=== PATIENT | female | born 1965 | race Caucasian/White ===

== ENCOUNTER 2021-09-23 06:56 | Inpatient (IN) | payer MEDICARE, MEDICAID, SELFPAY ==
[2021-09-23] VITALS (21 sets, daily range): BP systolic 91–154; BP diastolic 56–97; PULSE 80–132; RESP 16–32; TEMP 36.4–37; O2SAT 90–100; BMI 22.8; BMI 22.9
--- NOTE | 2021-09-23 | IR_ITS ---
APPROVED REPORT Patient Location: Inpatient PROCEDURES Left heart catheterization Left ventriculogram Selective coronary angiogram INDICATION Acute non-ST elevation myocardial infarction, Abnormal echocardiogram ejection fraction 20 to 25% with anterior apical akinesis, Decompensated class IV congestive heart failure, Informed consent was obtained prior to the procedure. COMPLICATIONS None Estimated Blood Loss: Less than 10 mls TECHNIQUE One percent lidocaine used to anesthetize the right anterior aspect of the wrist. The right radial artery was accessed via the Seldinger technique. A 6 Ecuadorean sheath was placed in the right radial artery. 2.5 mg of verapamil, 800 mcg of nitroglycerin, 1mg Lidocaine and 5000 U Heparin were given through the arterial sheath. The papa catheter was also used to perform left heart catheterization, left ventriculogram and selective coronary angiogram. At the end of the procedure the sheath was removed good hemostasis was achieved using Traclet band, patient was transferred to the postop holding area in stable condition. ANGIOGRAPHIC RESULTS The left main artery Normal The left anterior descending artery Has proximal mild 10% luminal irregularities. Distal to a large first diagonal artery and a large septal concrete rubber the mid LAD then tapers to 60 to 70% The circumflex artery Is a vestigial vessel and normal The right coronary artery Is a large dominant vessel and has a proximal concentric 30 to 40% stenosis with a mid vessel concentric long 40% stenosis. A large posterior descending artery and posterior lateral ventricular branch are widely patent The ANGELES ventriculogram reveals Poor opacification of the left ventricle therefore adequate ejection fraction cannot be determined The left ventricular end-diastolic pressure Severely lead to critically elevated at 40 to 45 mmHg IMPRESSION Coronary disease as described above QS pattern on EKG along with echocardiogram which demonstrates akinetic and even dyskinetic septum along with anterior apical hypokinesis and an ejection fraction of 20 to 25% is much more suggestive of an old myocardial infarction. The elevated troponin is most likely a type II NM based on the above findings Severe to critically elevated LVEDP PLAN 1. Patient requires diuresis based on critically elevated LVEDP 2. Start patient on Entresto and allow the tachycardia to resolve on its own as afterload is reduced. Perhaps by the end of this hospital stay we may be able to start low-dose carvedilol 3.125 p.o. twice daily 3. Judicious use of diuretics given patient's family reports what sounds like acute renal failure from historic overdiuresis 4. LDL less than 55 to be achieved with high intensity statin 5. Placement of LifeVest prior to discharge home Electronically signed by : Ramesh Sanchez MD 09/23/2021 11:40:44
--- NOTE | 2021-09-23 07:45 | CA_ITS ---
APPROVED REPORT EXAM: Comprehensive 2D, Doppler, and color-flow Echocardiogram Fructose Loader: Tasha Quiroz CRT Ht: 5 ft 0 in Wt: 117lbs BSA: 1.49 BP: 145/97 mmHg Indications: COPD, Shortness of Breath, Non STEMI, Hyperlipidemia, Hypertension/HDD, prev PR, prev home O2, Pt upright in bed very sob, NRB on, cath later today. increased trop. 2D Dimensions LVOT 1.64 cm (M/F) 1.5-2.5 LA Volume 14.60 mL LA Volume Index 9.80 mL/m2 (M/F) 16-34 M-Mode Dimensions RVDd 1.99 cm (0.9-2.6) LA Diam 1.92 cm (1.9-4.0) LVDd 3.85 cm (3.5-5.7) Ao Diam 2.45 cm (2.0-3.7) LVDs 2.48 cm (3.5-5.7) IVSd 0.85 cm (0.6-1.1) PWd 0.51 cm (0.6-1.1) EF (Teich) 65.70% FS 35.60% EDV (Teich) 63.90 mL TAPSE 2.20 (<1.7) ESV (Teich) 21.90 mL LV Diastology E Decel Time 153.00 (160-240 msec) E/A Ratio 1.31 MED E' 11.30 (< 7 cm/sec) MED A' 14.30 cm/s E'/MED E' Ratio 8.63 (>14) LAT E' 11.60 (<10 cm/sec) LAT A' 8.60 cm/s E/LAT E' Ratio 8.41 (>14) Aortic Valve AO Peak GR. 4.20 mmHg Mitral Valve MV E Max Hossein. 98.00 (40-130 cm/s) MV A Velocity 74.00 (40-130 cm/s) E/A Ratio 1.31 MV Decel. Time 153.00 (160-240 ms) MV PHT 45.00 ms Tricuspid Valve TR P. Velocity 180.00 cm/s RAP Estimate 10.00 mmHg RVSP 22.90 mmHg Left Ventricle Atrium is mildly enlarged, left ventricle is mildly dilated, severe reduced left ventricular systolic function, visually estimated ejection fraction 20 to 25%, there is marked hypokinesis involving mid to distal septum, anterior, anterior apical, apex, anterolateral and inferior apical wall. Doppler evidence of low cardiac output state is also seen. Diastolic parameters are inconclusive. Right Ventricle Right atrium and right ventricle are normal size and contractility. Aortic Valve Aortic valve is minimally thickened and fibrosed, there is no aortic stenosis or aortic insufficiency. Mitral Valve Mitral valve has mild mitral annular calcification, there is no mitral stenosis. There is mild mitral regurgitation. Tricuspid Valve Tricuspid valve grossly normal, there is mild tricuspid regurgitation, tricuspid rotation jet versus inadequate for calculation of the right ventricular systolic pressure. Pulmonic Valve Pulmonic valve is poorly visualized. Great Vessels Aortic root is normal size. Inferior vena cava is mildly dilated without significant inspiratory collapse. Pericardium No significant pericardial effusion noted. Conclusion 1. Mildly enlarged left atrium, mildly dilated left ventricle, severe reduced left ventricular systolic function, visually estimated ejection fraction 2025% with multiple segmental wall motion abnormality described above, diastolic parameters are inconclusive., Doppler evidence of low cardiac output state. 2. Mild mitral and tricuspid regurgitation. 3. No significant pericardial effusion noted. 4. Inferior vena cava is mildly dilated without significant inspiratory collapse. Electronically signed by : Louis Escamilla MD 09/24/2021 14:55:59
--- NOTE | 2021-09-23 07:48 | HMH.CNCARD ---
History of Present Illness Consult date: 09/23/21 Requesting physician: Peter Espana Consult reason: chest pain, shortness of breath Chief complaint: NSTEMI Additional Medical History:: 1. History of hypertension 2. Ongoing tobacco use of at least 1 pack/day for 40 years A. COPD with history of home oxygen use 3. Hyperlipidemia History of present illness: 55-year-old white female recently admitted/discharged at [facility] for shortness of breath felt secondary to upper respiratory infection, presented again to [facility] last evening/early this a.m. with progressive shortness of breath. Work-up in the ER included troponin which was elevated at 7100. EKG was sinus rhythm with no acute ST segment changes but with evidence of prior anterior IL. Patient was started on IV heparin, given oral aspirin and Plavix and after consultation with Dr. Sanchez was transferred here for further evaluation. Patient denies any chest pain at this time but is still short of breath. She is receiving oxygen by nonrebreather. No history of prior coronary artery disease She does continue to smoke No history of diabetes but recently told she had elevated glucose likely related to steroid use. [facility] History Medical History: Reports:: Chronic Obstructive Pulmonary Disease (COPD), Hyperlipidemia, Hypertension, Lung Disease *Have you ever received a pneumonia vaccine?: Yes *Have you received a flu vaccine this season?: Yes - *Social History Smoking Status: Current every day smoker Alcohol Intake: never *Occupational Status:: other *Travel in the last 8 weeks: Inside the [facility] Family Hx:: Coronary Artery Disease Meds Allergies Allergy/AdvReac Type Severity Reaction Status Date / Time No Known Allergies Allergy Verified 09/23/21 07:12 Exam I & O for Last 24 hours: Intake & Output 09/20/21 09/21/21 09/22/21 09/23/21 11:59 11:59 11:59 11:59 Weight 117 lb - Constitutional moderate distress, chronically ill appearing - *Routine Respiratory Exam Present: distant breath sounds, diminished air movement - *Routine Cardiovascular Exam Present: tachycardia - *Routine Extremities Exam Absent: cyanosis, clubbing, edema Comments: Decreased pedal pulses - *Routine Neurological Exam Present: alert, oriented X3 Review of Systems - Review of Systems Review of systems:: pertinent systems reviewed and negative unless documented below - *Cardiovascular Reports shortness of breath, Reports shortness of breath with activity - *Respiratory Reports shortness of breath, Reports shortness of breath with activity Assessment and Plan (1) NSTEMI (non-ST elevated myocardial infarction) Status: Acute Category: Medical Code(s): I21.4 - Non-ST elevation (NSTEMI) myocardial infarction (2) COPD (chronic obstructive pulmonary disease) Status: Acute Category: Medical Code(s): J44.9 - Chronic obstructive pulmonary disease, unspecified (3) History of hypertension Status: Acute Category: Medical Code(s): Z86.79 - Personal history of other diseases of the circulatory system (4) Hyperlipidemia Status: Acute Category: Medical Code(s): E78.5 - Hyperlipidemia, unspecified (5) History of elevated glucose Status: Acute Category: Medical Code(s): Z86.39 - Personal history of other endocrine, nutritional and metabolic disease (6) Abnormal EKG Status: Acute Category: Medical Code(s): R94.31 - Abnormal electrocardiogram [ECG] [EKG] - Assessment and plan all Dx Assessment and Plan for all problems:: 1. Non-ST elevation IL. Plan for left heart catheterization today. Risk, benefits and procedure explained to the patient she agrees to proceed. Continue heparin, Plavix and aspirin at this time. Will obtain echocardiogram to evaluate left ventricular ejection fraction. Further recommendations to follow pending above results. 2. COPD with possible bronchitis/pneumonia, de
[2021-09-23 07:58] LABS: Coronavirus 19, PCR Not Detected (NotDetected); Influenza A, PCR Not Detected (NotDetected); Influenza B, PCR Not Detected (NotDetected)
--- NOTE | 2021-09-23 08:16 | HMH.PHAVTE ---
[facility] Pharmacy VTE Monitoring - Patient Demographics Admission date: 09/23/21 Report Date: 09/23/21 Time: 08:16 Allergies/Adverse Reactions: Patient Allergies No Known Allergies Allergy (Verified 09/23/21 07:12) Height: 1.52 m Weight: 53.07 kg Patient Problems: Current Active Problems NSTEMI (non-ST elevated myocardial infarction) (Acute) COPD (chronic obstructive pulmonary disease) (Acute) History of hypertension (Acute) Hyperlipidemia (Acute) History of elevated glucose (Acute) Abnormal EKG (Acute) - VTE Risk Was VTE Risk Assessment Performed: Yes VTE Score: 4 VTE Risk Level: Low Risk Clinical Trial Participant: No - Prophylaxis VTE Prophylaxis Ordered?: Yes Types of VTE Prophylaxis: TEDS Knee High, Pharmacological Pharmacologic Type: Heparin
--- NOTE | 2021-09-23 08:31 | P.CONPHA_ITS ---
[facility] Pharmacy Heparin Dosing - Demographic Data Admission date:: 09/23/21 Date: 09/23/21 Time: 08:31 Allergies/Adverse Reactions: Allergies Allergy/AdvReac Type Severity Reaction Status Date / Time No Known Allergies Allergy Verified 09/23/21 07:12 Height: 1.52 m Weight: 53.07 kg - Indication Medication therapy:: Heparin Patient Problems: Current Active Problems NSTEMI (non-ST elevated myocardial infarction) (Acute) COPD (chronic obstructive pulmonary disease) (Acute) History of hypertension (Acute) Hyperlipidemia (Acute) History of elevated glucose (Acute) Abnormal EKG (Acute) CVA?: No Bleeding problem?: No Kidney disease?: No MN?: Yes Desired PTT range:: Other (50-75 SECONDS) - Monitoring Dose Monitor 1 Date: 09/23/21 Time: 07:22 PTT Result:: NEW START Infusion Rate:: PATIENT WAS TRANSFERRED FROM [facility] AND THE HEPARIN DRIP WAS STARTED AT 1600 UNITS/HOUR Dose Monitor 2 Date: 09/23/21 Time: 08:33 PTT Result:: 100 Infusion Rate:: DECREASE HEPARIN RATE BY 3 UNITS/KG/HOUR TO 1450 UNITS/HOUR Dose Monitor 3 Date: 09/23/21 Time: 10:00 PTT Result:: 176.5 Infusion Rate:: DRIP CONTINUED AT CURRENT RATE, PATIENT WAS SENT TO RADIOLOGY NURSE AND GIVEN HEPARIN THERE FOR PROCEDURE. Comment:: HEPARIN DRIP STOPPED AFTER RADIOLOGY NURSE INTERVENTION AT 13:10 - Core Measures Is INR > or = 2 at discharge?: No Most Recent Labs:: Laboratory Results - last 24 hr 09/23/21 07:22: APTT 100.0 H* Were Heparin and Warfarin started on the same day?: No If not, why?: PATIENT WENT TO RADIOLOGY NURSE, POST RADIOLOGY NURSE ORDERS PENDING
--- NOTE | 2021-09-23 09:03 | HMH.HP ---
*Admission Date: 09/23/21 *Chief complaint: SOA *History of present illness: 55-year-old female patient presented to the emergency department at [facility] for increasing shortness of breath and cough. son reports she was inpatient at [facility] for bronchitis over the weekend and received antibiotics he is unsure what medication she received. Son also reports that she is a longtime tobacco smoker and carries a diagnosis of COPD. While in the emergency department it was discovered she had elevated troponin levels 7100, cardiology was consulted and she was transferred to [facility]. Son also reports his grandmother, patient's mother is at home with hospice care and is actively dying. He reports he knows his mother has been sick for a while but she will not report any complaints due to caring for her mother. Son also reports she has had difficulty swallowing pills for a while and has been coughing after eating. He reports his mother will not discuss her shortness of breath, swallowing difficulties, chest pain, or other visible distress with family. 09/23/21 CXR: FINDINGS: The heart is normal size. The mediastinum is normal. There are coarse interstitial opacities in the lungs favoring chronic fibrosis. There are no pleural effusions. There is no pneumothorax. There is no osseous abnormality. IMPRESSION: No acute cardiopulmonary process Reviewed, Interpreted and Dictated by Amilcar Barbosa MD 55-year-old female patient sitting up to bed is in respiratory distress, current saturations 90% on room nonrebreather. Patient assisted to sitting up at bedside she is able to breathe a little better here and is reminded to not speak. She denies any chest pain, son is in room, cardiology has scheduled her for catheterization this morning [facility] History I have reviewed the patient's past medical history: Yes Medical History: Reports:: Hyperlipidemia, Hypertension Denies:: Cancer, Diabetes Mellitus Type 1, Diabetes Mellitus Type 2, MRSA *Have you ever received a pneumonia vaccine?: Yes *Have you received a flu vaccine this season?: Yes Amputation: No Fractures: No - *Social History Last grade of school completed: 11th or 12th Smoking Status: Current every day smoker Tobacco Type: cigarettes # Packs/Day (cigarettes): 1 Alcohol Intake: never Alcohol Intake Frequency:: 0-2 drinks per day Substance Use Type: denies use Last Used Substance: unknown *Occupational Status:: disabled Housing: apartment Household Members: family *Travel in the last 8 weeks: None Family Hx:: Unable to obtain Review of Systems - Review of Systems Review of systems:: pertinent systems reviewed and negative unless documented below - Constitutional Reports fatigue, Reports weakness - Eyes Denies blurry vision, Denies change in vision - ENT Denies abnormal hearing, Denies hearing loss - *Cardiovascular Reports shortness of breath, Reports shortness of breath with activity, Reports leg swelling - *Respiratory Reports chest congestion, Reports cough, Reports shortness of breath, Reports shortness of breath with activity - *Gastrointestinal Denies abdominal pain, Denies change in bowel habits - *Musculoskeletal Denies joint pain, Denies body aches - Integumentary/Breasts Denies hair loss, Denies change in skin color - *Neurologic Denies abnormal hearing, Denies seizure-like activity - Psychiatric Denies lack of enjoyment, Denies anxiety - Endocrine Denies cold intolerance, Denies increased thirst - Hematologic/Lymphatic Denies easy bleeding, Denies easy bruising - Allergic/Immunologic Denies lip swelling, Denies tongue swelling Meds Home Medications Medication Instructions Recorded Confirmed Type Albuterol Sulfate [Albuterol 2 puffs IH Q4HP PRN 09/23/21 09/23/21 History Sulfate Hfa] Buprenorphine HCl/Naloxone HCl 2 each SL DAILY 09/23/21 09/23/21 History [Buprenorphin-Nalox
--- NOTE | 2021-09-23 09:18 | HMH.PULMCON ---
*Admission Date: 09/23/21 *Reason for consult:: Acute Hypoxic respiratory failure *History of present illness: Ms. Farley Is a 55-year-old female presented to the hospital from [facility] where she was admitted for worsening respiratory symptoms significantly elevated troponins status post cardiac catheterization and pulmonary was called for further management. As per the patient was also recently admitted there for upper respiratory infection. [facility] History Medical History: Reports:: Hyperlipidemia, Hypertension Denies:: Cancer, Diabetes Mellitus Type 1, Diabetes Mellitus Type 2, MRSA *Have you ever received a pneumonia vaccine?: Yes *Have you received a flu vaccine this season?: Yes Amputation: No Fractures: No - *Social History Last grade of school completed: 11th or 12th Smoking Status: Current every day smoker Tobacco Type: cigarettes # Packs/Day (cigarettes): 1 Alcohol Intake: never Alcohol Intake Frequency:: other Substance Use Type: other Last Used Substance: unknown *Occupational Status:: disabled Housing: apartment Household Members: family *Travel in the last 8 weeks: None Family Hx:: Other ROS - Cons Reports fatigue - Eyes Denies change in vision - ENT Denies nasal discharge, Denies nasal obstruction - Card Reports chest pain, Reports shortness of breath, Reports shortness of breath with activity - Resp Respiratory: Reports shortness of breath, Reports chest congestion, Reports cough, Reports dyspnea, Reports dyspnea on exertion, Denies excessive phlegm production, Reports wheezing - GI Gastrointestingal: Denies: abdominal pain - Psych Denies thoughts of hurting/killing others, Denies thoughts of hurting/killing yourself Meds Allergies Allergy/AdvReac Type Severity Reaction Status Date / Time No Known Allergies Allergy Verified 09/23/21 07:12 Exam - Constitutional Constitutional:: Present: no acute distress. Absent: comfortable - HENMT Exam HENMT: Present: normocephalic, atraumatic - Eye Exam Eyes:: Present: normal appearance both eyes and related structures - Neck Exam Neck:: Present: normal visual inspection - Respiratory Exam Respiratory:: Present: able to speak in complete sentences, respiratory distress, wheezing - Cardiovascular Exam Cardiac:: Present: S1, S2 - GI Exam GI:: Present: soft - Skin Exam Skin: Present: warm, no rash - Neurological Exam Neurological: Present: alert, awake - Extremities Exam Extremities: Present: no cyanosis, no clubbing, no edema Assessment and Plan (1) NSTEMI (non-ST elevated myocardial infarction) Status: Acute Category: Medical Code(s): I21.4 - Non-ST elevation (NSTEMI) myocardial infarction (2) COPD (chronic obstructive pulmonary disease) Status: Acute Category: Medical Code(s): J44.9 - Chronic obstructive pulmonary disease, unspecified (3) History of hypertension Status: Acute Category: Medical Code(s): Z86.79 - Personal history of other diseases of the circulatory system (4) Hyperlipidemia Status: Acute Category: Medical Code(s): E78.5 - Hyperlipidemia, unspecified (5) History of elevated glucose Status: Acute Category: Medical Code(s): Z86.39 - Personal history of other endocrine, nutritional and metabolic disease (6) Abnormal EKG Status: Acute Category: Medical Code(s): R94.31 - Abnormal electrocardiogram [ECG] [EKG] - Assessment and plan all Dx Assessment and Plan for all problems:: #Acute hypoxic respiratory failure: #COPD exacerbation: 55-year-old female current smoker greater than [id number] smoking history. Carries a diagnosis COPD. Not using any oxygen at baseline. Recently admit to the hospital at [facility], treated with antibiotics and diuretics for exertional dyspnea and was discharged home and patient presented hospital again with similar complaints are noted to have elevated troponin and transferred here for further evaluation
--- NOTE | 2021-09-23 09:22 | XR_ITS ---
FINAL REPORT CLINICAL HISTORY: Hypoxia, smoker FINDINGS: The heart is normal size. The mediastinum is normal. There are coarse interstitial opacities in the lungs favoring chronic fibrosis. There are no pleural effusions. There is no pneumothorax. There is no osseous abnormality. IMPRESSION: No acute cardiopulmonary process Reviewed, Interpreted and Dictated by Amilcar Barbosa MD Transcribed by Juan Luis Herring Authenticated by Amilcar Barbosa MD on 09/23/2021 10:59:45 AM [facility]
[2021-09-23 09:26] LABS: Adenovirus,PCR Not Detected (NotDetected); Bordetella Pertussis Not Detected (NotDetected); Chlamydophila Pneumoniae, PCR Not Detected (NotDetected); Coronavirus 229E Not Detected (NotDetected); Coronavirus NL63 Not Detected (NotDetected); Coronavirus OC43 Not Detected (NotDetected); Coronovirus HKU1,PCR Not Detected (NotDetected); Human Metapneumovirus Not Detected (NotDetected); Influenza A, PCR Not Detected (NotDetected); Influenza AH1, 2009 Not Detected (NotDetected); Influenza AH1, PCR Not Detected (NotDetected); Influenza AH3,PCR Not Detected (NotDetected); Influenza B, PCR Not Detected (NotDetected); Mycoplasma Pneumoniae, PCR Not Detected (NotDetected); Parainfluenza 1, PCR Not Detected (NotDetected); Parainfluenza 2, PCR Not Detected (NotDetected); Parainfluenza 3, PCR Not Detected (NotDetected); Parainfluenza 4, PCR Not Detected (NotDetected); Respiratory Syncytial Virus Not Detected (NotDetected); Rhinovirus/Enterovirus Not Detected (NotDetected)
--- NOTE | 2021-09-23 10:06 | DIET.NUTRFU ---
RD rounded with provider today, during rounds son indicated his mom has been having trouble swallowing some of her pills. VEHICLE [employer] CONVERTER to eval to determine safe oral diet, will followup
[2021-09-23 10:35] LABS: PTT Heparin (inpatient only) 176.5 Seconds (23.6-34.0)
[2021-09-23 10:46] LABS: ABG Base Excess 0.3 mmol/L (-2.4-2.3); ABG Oxygen Saturation 99 % (90-100); ABG PCO2 48.9 mmhg (35.0-45.0); ABG PH 7.34 mmol/L (7.35-7.45); ABG PO2 148.3 mmhg (80-100); ABG TCO2 27.5 mmhg (23-27); Oxygen SIMPLE MASK %; Source ALINE
[2021-09-23 13:50] LABS: Basophils % 0.2 % (0.1-2.0); Eosinophils % 0.2 % (0.1-12.0); Hematocrit 40.6 % (37.0-47.0); Hemoglobin 12.9 g/dL (12.2-16.2); Lymphocytes # 1.2 K/mm3 (0.7-4.5); Lymphocytes % 5.5 % (10-50); Mean Corpuscular HGB Conc 31.8 g/dL (31.8-35.4); Mean Corpuscular Hemoglobin 30.8 pg (27.0-31.2); Mean Corpuscular Volume 96.8 fl (81-99); Mean Platelet Volume 8.8 fl (7.4-10.4); Monocytes # 0.6 K/mm3 (0.1-1.0); Monocytes % 2.7 % (1.7-9.3); Neutrophils # 19.4 K/mm3 (1.8-7.8); Neutrophils % 91.3 % (37.0-80.0); Platelet Count 510 K/mm3 (142-424); Red Blood Count 4.19 M/mm3 (4.20-5.40); Red Cell Distribution Width 13.6 % (11.5-17.5); White Blood Count 21.3 K/mm3 (4.8-10.8)
[2021-09-23 13:54] LABS: MANUAL DIFFERENTIAL MANUAL DIFFERENTIAL (MANUAL DIFF)
[2021-09-23 14:04] LABS: Chloride 91 mmol/L (98-107); Sodium 126 mmol/L (136-145)
[2021-09-23 14:05] LABS: Potassium 4.1 mmoL/L (3.5-5.1)
[2021-09-23 14:07] LABS: Blood Urea Nitrogen 10 mg/dl (7-17); Creatinine Clearance Estimated 104 mL/min (50-200); Estimated Glomerular Filt Rate 127 ml/min (>60); GFR (African American) 154 ML/MIN (>60)
[2021-09-23 14:08] LABS: Anion Gap 7.1 mEq/L (5-15); Calcium 7.5 mg/dl (8.4-10.2); Carbon Dioxide 32 mmol/L (22.0-30.0); Glucose 147 mg/dl (74-100); Magnesium 1.7 mg/dl (1.6-2.3)
[2021-09-23 14:36] LABS: Lymphocytes % 11 % (10-50); Monocytes % 2 % (2-9); Neutrophils % 87 % (42-76); Platelet Estimate Normal; RBC Morphology Normal; Total Cells Counted 100
--- NOTE | 2021-09-23 15:25 | HMH.PHAINT ---
MEDICATION RECONCILIATION COMPLETED ON PATIENT USING EXTERNAL FILL HISTORY FROM PHARMACY AND BALJINDER REPORT. -BONNIE JACOBSEND
--- NOTE | 2021-09-23 15:58 | PC.NURSE ---
PT IS RESTING IN BED. PT HAS BEEN VERY DROWSY SINCE ARRIVING BACK TO THE FLOOR FROM THE LOAN ANALYST. AT 1400 PT HAD TO GET UP VERY QUICKLY TO THE BSC AND BECAME VERY ANXIOUS. BP 154/90. HR 123 R 32. O2 SATURATION 89-93%. PT ALSO HAD AUDIBLE WHEEZING. RT NOTIFIED FOR SCHEDULED BREATHING TREATMENT. KALI KAUR NOTIFIED AND WAS AT BEDSIDE WHEN PT WAS RECEIVING BREATHING TREATMENT. AFTER TREATMENT PT STARTED TO CALM DOWN. AT 1430 BP 113/63. HR 104. R 24. O2 SATURATION 97% ON 2 L NC. WILL CONTINUE TO MONITOR.
[2021-09-24] VITALS (11 sets, daily range): BP systolic 113–144; BP diastolic 66–78; PULSE 89–130; RESP 16–24; TEMP 35.9–37.4; O2SAT 94–99; BMI 22.1
[2021-09-24 06:48] LABS: MANUAL DIFFERENTIAL MANUAL DIFFERENTIAL (MANUAL DIFF)
[2021-09-24 06:56] LABS: Basophils % 0.1 % (0.1-2.0); Hemoglobin 14.1 g/dL (12.2-16.2); Lymphocytes # 1.1 K/mm3 (0.7-4.5); Lymphocytes % 10.4 % (10-50); Mean Corpuscular HGB Conc 32.7 g/dL (31.8-35.4); Mean Corpuscular Hemoglobin 30.3 pg (27.0-31.2); Mean Corpuscular Volume 92.4 fl (81-99); Mean Platelet Volume 7.3 fl (7.4-10.4); Monocytes # 0.6 K/mm3 (0.1-1.0); Monocytes % 5.2 % (1.7-9.3); Neutrophils % 84.2 % (37.0-80.0); Platelet Count 484 K/mm3 (142-424); Red Blood Count 4.65 M/mm3 (4.20-5.40); Red Cell Distribution Width 13.7 % (11.5-17.5); White Blood Count 10.7 K/mm3 (4.8-10.8)
[2021-09-24 07:04] LABS: Chloride 88 mmol/L (98-107); Potassium 4.1 mmoL/L (3.5-5.1); Sodium 128 mmol/L (136-145)
[2021-09-24 07:07] LABS: Anion Gap 9.1 mEq/L (5-15); Blood Urea Nitrogen 13 mg/dl (7-17); Carbon Dioxide 35 mmol/L (22.0-30.0); Creatinine Clearance Estimated 100 mL/min (50-200); Estimated Glomerular Filt Rate 127 ml/min (>60); GFR (African American) 154 ML/MIN (>60)
[2021-09-24 07:08] LABS: Calcium 7.9 mg/dl (8.4-10.2); Glucose 135 mg/dl (74-100)
[2021-09-24 08:30] LABS: Lymphocytes % 6 % (10-50); Monocytes % 2 % (2-9); Neutrophils % 92 % (42-76); Total Cells Counted 100
[2021-09-24 08:31] LABS: Platelet Estimate Normal
--- NOTE | 2021-09-24 08:43 | HMH.PULMPN ---
Internal Medicine - PN: Subj *Date: 09/24/21 *Time: 09:39 Interval history: No acute respiratory events overnight. Patient admits continued improvement in her symptoms. Exam - Constitutional Constitutional:: Present: no acute distress, comfortable - HENMT Exam HENMT: Present: normocephalic, atraumatic - Eye Exam Eyes:: Present: normal appearance both eyes and related structures - Neck Exam Neck:: Present: normal visual inspection - Respiratory Exam Respiratory:: Present: able to speak in complete sentences, no respiratory distress, crackles. Absent: wheezing - Cardiovascular Exam Cardiac:: Present: S1, S2 - GI Exam GI:: Present: soft - Skin Exam Skin: Present: warm - Neurological Exam Neurological: Present: alert, awake - Extremities Exam Extremities: Present: no cyanosis, no clubbing, edema Assessment and Plan (1) NSTEMI (non-ST elevated myocardial infarction) Status: Acute Category: Medical Code(s): I21.4 - Non-ST elevation (NSTEMI) myocardial infarction (2) COPD (chronic obstructive pulmonary disease) Status: Acute Category: Medical Code(s): J44.9 - Chronic obstructive pulmonary disease, unspecified (3) History of hypertension Status: Acute Category: Medical Code(s): Z86.79 - Personal history of other diseases of the circulatory system (4) Hyperlipidemia Status: Acute Category: Medical Code(s): E78.5 - Hyperlipidemia, unspecified (5) History of elevated glucose Status: Acute Category: Medical Code(s): Z86.39 - Personal history of other endocrine, nutritional and metabolic disease (6) Abnormal EKG Status: Acute Category: Medical Code(s): R94.31 - Abnormal electrocardiogram [ECG] [EKG] - Assessment and plan all Dx Assessment and Plan for all problems:: #Acute hypoxic respiratory failure: #COPD exacerbation: 55-year-old female current smoker greater than [id number] smoking history. Carries a diagnosis COPD. Not using any oxygen at baseline. Recently admit to the hospital at [facility], treated with antibiotics and diuretics for exertional dyspnea and was discharged home and patient presented hospital again with similar complaints are noted to have elevated troponin and transferred here for further evaluation COVID-19 and flu PCR negative. Afebrile on presentation. Chest x-ray did not show any acute pulmonary infiltrates, hyperinflated lungs. Examination revealed mild respiratory distress with diffuse wheezing. Bilateral 2+ lower extremity edema noted. Saturating 99% nonrebreather, weaned to 2 L nasal cannula saturations maintained at 94% and above. ABG performed on 2 L nasal cannula showed PO2 148, PCO2 48 and pH of 7.34. Interval Update: Leucocytosis improving. Continued to have hyponatremia. Comprehensive respiratory viral PCR negative. O2 requirements continued to improve, saturating 97% on 2 L, weaned to room air with saturations maintained at 93% and above. Plan: -Patient weaned to room air this morning, oxygen as needed to maintain O2 saturation goal of 90% and above. -Continue ceftriaxone & azithromycin for community-acquired pneumonia, can be weaned to levofloxacin to complete a total of 5-day course upon discharge -DuoNebs every 6 hours along with budesonide every 12 schedule, patient can be discharged on home inhaler therapy which include Anoro and Asmanex along with DuoNebs every 6 hours on as-needed basis. -Wean methylprednisolone to prednisone 40 mg daily to complete a total of 5-day course. -Volume optimization as per primary team and cardiology. #Thank you for involving pulmonary in this patient care. We will follow the patient in pulmonary clinic in -6 with a full PFT and 6-minute walk testing.
--- NOTE | 2021-09-24 08:49 | HMH.SLDYSPHA ---
Speech & Language Evaluation Speech/Language Dysphagia Evaluation Start: 09/24/21 08:39 Freq: ONCE Status: Active Protocol: Document 09/24/21 08:40 DALLIN (Rec: 09/24/21 08:49 DALLIN [id number]) Dysphagia Assess/Goals/Plan Assessment Date of Evaluation: 09/24/21 Evaluation Type Initial Certification Assessment/Problems Dysphagia eval Does Patient Qualify for Service No Qualify/Failure Comment No overt signs or symptoms of dysphagia at this time. Plan Pt/Guardian verbally ack understanding Yes of dx/prognosis/goals G -code Required No General Information General Current Food Consistancy Regular,Thin Liquids Dentition Poor Dentition Oxygen Status Nasal Cannula Facial Symmetry Symmetrical Patient Orientation Person,Place,Time,Situation Ability to Follow Directions Excellent Communication Ability No Impairment Dysphagia:Food Presentation Evaluation Food Type Regular,Liquid,Pudding Dysphagia Evaluation Summary Ms. Fisher was given the following consistencies; thins via open cup and straw, pudding, regular and pills. She is not displaying any signs of dysphagia at this time. Modified diet of [facility] soft is recommended due to poor dentition and difficulty breathing while eating. Stroke Dysphagia Assessment PHYSICIAN CERTIFICATION: I certify the specified therapy services for Natalia Farley are required, authorized, and reviewed every 30 days.
--- NOTE | 2021-09-24 09:05 | HMH.ACPN2 ---
Internal Medicine - PN: Subj *Date: 09/24/21 *Time: 12:20 Interval history: 55-year-old female patient sitting up in bed resting quietly she denies any chest pain, shortness of breath, or anxiety during the night. Current oxygenation 96% on 2 L per nasal cannula. She denies being on any oxygen at home, she reports she was on home O2 at one point and did not requalify and oxygen was removed from house. She is complaining of increased anxiety lately and we will start a trial of BuSpar Exam Vital signs and Labs for Last 24 Hours: Temp Pulse Resp BP Pulse Ox 98.3 F 91 H 16 119/72 97 09/24/21 04:00 09/24/21 05:52 09/24/21 04:00 09/24/21 04:00 09/24/21 05:52 Laboratory Results - last 24 hr 09/22/21 07:32: WBC 21.3 H*, RBC 4.19 L, Hgb 12.9, Hct 40.6, MCV 96.8, MCH 30.8, MCHC 31.8, RDW 13.6, Plt Count 510 H, MPV 8.8, Neut % (Auto) 91.3 H, Lymph % (Auto) 5.5 L, [place] % (Auto) 2.7, Eos % (Auto) 0.2, Baso % (Auto) 0.2, Neut # (Auto) 19.4 H, Lymph # (Auto) 1.2, [place] # (Auto) 0.6, Eos # (Auto) 0.0, Baso # (Auto) 0.0, Total Counted 100, Neutrophils % (Manual) 87 H, Lymphocytes % (Manual) 11, Monocytes % (Manual) 2, Platelet Estimate Normal, RBC Morphology Normal 09/22/21 07:32: Sodium 126 L, Potassium 4.1, Chloride 91 L, Carbon Dioxide 32 H, Anion Gap 7.1, BUN 10, Creatinine 0.50 L, Estimated Creat Clear 104, Estimated GFR 127, Est GFR ( Amer) 154, Glucose 147 H, Calcium 7.5 L, Magnesium 1.7 09/23/21 07:30: SARS-CoV-2 (PCR) Not detected, Influenza A Untype (PCR) Not detected, Influenza Type B (PCR) Not detected 09/23/21 07:30: Chlamy pneumoniae PCR Not detected, Adenovirus (PCR) Not detected, B. pertussis DNA (PCR) Not detected, Coronavirus OC43 (PCR) Not detected, Coronavirus HKU1 (PCR) Not detected, Coronavirus 229E (PCR) Not detected, Coronavirus NL63 (PCR) Not detected, Human Metapneumovir PCR Not detected, Influenza A (H1) PCR Not detected, Influ A (H1N1/09) PCR Not detected, Influenza A (H3) PCR Not detected, Influenza Type A (PCR) Not detected, Influenza Type B (PCR) Not detected, M. pneumoniae (PCR) Not detected, Parainfluenza 1 (PCR) Not detected, Parainfluenza 2 (PCR) Not detected, Parainfluenza 3 (PCR) Not detected, Parainfluenza 4 (PCR) Not detected, RSV (PCR) Not detected, Entero/Rhino (PCR) Not detected 09/23/21 09:54: APTT 176.5 H* 09/23/21 10:02: Specimen Source [place], O2 % Simple mask, ABG pH 7.34 L, ABG pCO2 48.9 H, ABG pO2 148.3 H, ABG HCO3 26.0, ABG Total CO2 27.5 H, ABG O2 Saturation 99, ABG Base Excess 0.3 09/24/21 05:50: WBC 10.7 D, RBC 4.65, Hgb 14.1, Hct 43.0, MCV 92.4, MCH 30.3, MCHC 32.7, RDW 13.7, Plt Count 484 H, MPV 7.3 L, Neut % (Auto) 84.2 H, Lymph % (Auto) 10.4, [place] % (Auto) 5.2, Eos % (Auto) 0.0 L, Baso % (Auto) 0.1, Neut # (Auto) 9.0 H, Lymph # (Auto) 1.1, [place] # (Auto) 0.6, Eos # (Auto) 0.0, Baso # (Auto) 0.0, Total Counted 100, Neutrophils % (Manual) 92 H, Lymphocytes % (Manual) 6 L, Monocytes % (Manual) 2, Platelet Estimate Normal 09/24/21 05:50: Sodium 128 L, Potassium 4.1, Chloride 88 L, Carbon Dioxide 35 H, Anion Gap 9.1, BUN 13 D, Creatinine 0.50 L, Estimated Creat Clear 100, Estimated GFR 127, Est GFR ( Amer) 154, Glucose 135 H, Calcium 7.9 L I & O for Last 24 hours: Intake & Output 09/21/21 09/22/21 09/23/21 09/24/21 23:59 23:59 23:59 23:59 Intake Total 480 / 480 Output Total 0 / 0 900 / 900 Balance 480 / 480 -900 / -900 Weight 116 lb 13.52 oz 113 lb - Constitutional no acute distress, thin, chronically ill appearing - *Routine HEENT Exam Head: Present: normocephalic Eye: Present: EOMI ENT: Present: mucous membranes moist - *Routine Neck Exam Present: trachea midline. Absent: tracheal deviation - *Routine Respiratory Exam Present: decreased breath sounds. Absent: accessory muscle use - *Routine Cardiovascular Exam Present: RRR - *Routine Abdominal Exam Present: soft, normoactive bowel sounds. Absent: tenderness, firm - *Routine Extremities Exam Present:
--- NOTE | 2021-09-24 09:30 | HMH.PNCARD ---
Subjective Date: 09/24/21 Time: 09:30 Principal diagnosis: CHF, Cardiomyopathy Interval history: 55-year-old white female in bed in no acute distress. Is significantly less anxious and short of breath today compared to yesterday. Reviewed the results of her cardiac catheterization and her current cardiac status with recommendation for treatment and consideration of LifeVest. Exam Vital signs and Labs for Last 24 Hours: Temp Pulse Resp BP Pulse Ox 96.6 F L 96 H 22 144/78 H 94 L 09/24/21 08:00 09/24/21 08:00 09/24/21 08:00 09/24/21 08:00 09/24/21 08:00 Laboratory Results - last 24 hr 09/22/21 07:32: WBC 21.3 H*, RBC 4.19 L, Hgb 12.9, Hct 40.6, MCV 96.8, MCH 30.8, MCHC 31.8, RDW 13.6, Plt Count 510 H, MPV 8.8, Neut % (Auto) 91.3 H, Lymph % (Auto) 5.5 L, [place] % (Auto) 2.7, Eos % (Auto) 0.2, Baso % (Auto) 0.2, Neut # (Auto) 19.4 H, Lymph # (Auto) 1.2, [place] # (Auto) 0.6, Eos # (Auto) 0.0, Baso # (Auto) 0.0, Total Counted 100, Neutrophils % (Manual) 87 H, Lymphocytes % (Manual) 11, Monocytes % (Manual) 2, Platelet Estimate Normal, RBC Morphology Normal 09/22/21 07:32: Sodium 126 L, Potassium 4.1, Chloride 91 L, Carbon Dioxide 32 H, Anion Gap 7.1, BUN 10, Creatinine 0.50 L, Estimated Creat Clear 104, Estimated GFR 127, Est GFR ( Amer) 154, Glucose 147 H, Calcium 7.5 L, Magnesium 1.7 09/23/21 07:30: Chlamy pneumoniae PCR Not detected, Adenovirus (PCR) Not detected, B. pertussis DNA (PCR) Not detected, Coronavirus OC43 (PCR) Not detected, Coronavirus HKU1 (PCR) Not detected, Coronavirus 229E (PCR) Not detected, Coronavirus NL63 (PCR) Not detected, Human Metapneumovir PCR Not detected, Influenza A (H1) PCR Not detected, Influ A (H1N1/09) PCR Not detected, Influenza A (H3) PCR Not detected, Influenza Type A (PCR) Not detected, Influenza Type B (PCR) Not detected, M. pneumoniae (PCR) Not detected, Parainfluenza 1 (PCR) Not detected, Parainfluenza 2 (PCR) Not detected, Parainfluenza 3 (PCR) Not detected, Parainfluenza 4 (PCR) Not detected, RSV (PCR) Not detected, Entero/Rhino (PCR) Not detected 09/23/21 09:54: APTT 176.5 H* 09/23/21 10:02: Specimen Source [place], O2 % Simple mask, ABG pH 7.34 L, ABG pCO2 48.9 H, ABG pO2 148.3 H, ABG HCO3 26.0, ABG Total CO2 27.5 H, ABG O2 Saturation 99, ABG Base Excess 0.3 09/24/21 05:50: WBC 10.7 D, RBC 4.65, Hgb 14.1, Hct 43.0, MCV 92.4, MCH 30.3, MCHC 32.7, RDW 13.7, Plt Count 484 H, MPV 7.3 L, Neut % (Auto) 84.2 H, Lymph % (Auto) 10.4, [place] % (Auto) 5.2, Eos % (Auto) 0.0 L, Baso % (Auto) 0.1, Neut # (Auto) 9.0 H, Lymph # (Auto) 1.1, [place] # (Auto) 0.6, Eos # (Auto) 0.0, Baso # (Auto) 0.0, Total Counted 100, Neutrophils % (Manual) 92 H, Lymphocytes % (Manual) 6 L, Monocytes % (Manual) 2, Platelet Estimate Normal 09/24/21 05:50: Sodium 128 L, Potassium 4.1, Chloride 88 L, Carbon Dioxide 35 H, Anion Gap 9.1, BUN 13 D, Creatinine 0.50 L, Estimated Creat Clear 100, Estimated GFR 127, Est GFR ( Amer) 154, Glucose 135 H, Calcium 7.9 L I & O for Last 24 hours: Intake & Output 09/21/21 09/22/21 09/23/21 09/24/21 11:59 11:59 11:59 11:59 Intake Total 0 / 0 480 / 480 Output Total 0 / 0 900 / 900 Balance 0 / 0 -420 / -420 Weight 116 lb 15.989 oz 113 lb - *Routine Respiratory Exam Present: decreased breath sounds - *Routine Cardiovascular Exam Present: RRR - *Routine Extremities Exam Absent: cyanosis, clubbing, edema - *Routine Neurological Exam Present: alert, oriented X3 Progress Note: A&P (1) NSTEMI (non-ST elevated myocardial infarction) Status: Acute Assessment and plan: Type II non-ST elevation [place] secondary to acute on chronic systolic heart failure. Continue aspirin and Plavix. She did not have any stenting at this time. Moderate coronary artery disease to be treated medically. (2) COPD (chronic obstructive pulmonary disease) Status: Acute (3) History of hypertension Status: Acute (4) Hyperlipidemia Status: Acute (5) History of elevated glucose Status:
[2021-09-25] VITALS (12 sets, daily range): BP systolic 96–123; BP diastolic 47–68; PULSE 70–115; RESP 16–18; TEMP 36.5–36.9; O2SAT 90–94; BMI 20.2
[2021-09-25 07:01] LABS: MANUAL DIFFERENTIAL MANUAL DIFFERENTIAL (MANUAL DIFF)
[2021-09-25 07:05] LABS: Chloride 86 mmol/L (98-107); Potassium 4.1 mmoL/L (3.5-5.1); Sodium 129 mmol/L (136-145)
[2021-09-25 07:08] LABS: Anion Gap 9.1 mEq/L (5-15); Blood Urea Nitrogen 21 mg/dl (7-17); Calcium 8.3 mg/dl (8.4-10.2); Carbon Dioxide 38 mmol/L (22.0-30.0); Creatinine Clearance Estimated 57 mL/min (50-200); Estimated Glomerular Filt Rate 74 ml/min (>60); GFR (African American) 89 ML/MIN (>60); Glucose 96 mg/dl (74-100)
[2021-09-25 07:23] LABS: Basophils % 0.1 % (0.1-2.0); Hematocrit 47.8 % (37.0-47.0); Hemoglobin 15.4 g/dL (12.2-16.2); Lymphocytes # 3.2 K/mm3 (0.7-4.5); Mean Corpuscular HGB Conc 32.2 g/dL (31.8-35.4); Mean Corpuscular Hemoglobin 30.3 pg (27.0-31.2); Mean Corpuscular Volume 94.1 fl (81-99); Monocytes # 1.2 K/mm3 (0.1-1.0); Monocytes % 7.4 % (1.7-9.3); Neutrophils # 12.3 K/mm3 (1.8-7.8); Neutrophils % 73.5 % (37.0-80.0); Platelet Count 560 K/mm3 (142-424); Red Blood Count 5.08 M/mm3 (4.20-5.40); Red Cell Distribution Width 13.7 % (11.5-17.5); White Blood Count 16.8 K/mm3 (4.8-10.8)
--- NOTE | 2021-09-25 09:35 | HMH.ACPN2 ---
Internal Medicine - PN: Subj *Date: 09/25/21 *Time: 09:35 Interval history: doing ok but tired - awaiting life-vest - on iv lasix - labs reviewed Exam Vital signs and Labs for Last 24 Hours: Temp Pulse Resp BP Pulse Ox 98.0 F 74 16 108/64 L 91 L 09/25/21 07:43 09/25/21 07:43 09/25/21 07:43 09/25/21 07:43 09/25/21 07:43 Laboratory Results - last 24 hr 09/25/21 06:09: WBC 16.8 H D, RBC 5.08, Hgb 15.4, Hct 47.8 H, MCV 94.1, MCH 30.3, MCHC 32.2, RDW 13.7, Plt Count 560 H, MPV 7.0 L, Neut % (Auto) 73.5, Lymph % (Auto) 19.0, [place] % (Auto) 7.4, Eos % (Auto) 0.0 L, Baso % (Auto) 0.1, Neut # (Auto) 12.3 H, Lymph # (Auto) 3.2, [place] # (Auto) 1.2 H, Eos # (Auto) 0.0, Baso # (Auto) 0.0 09/25/21 06:09: Sodium 129 L, Potassium 4.1, Chloride 86 L, Carbon Dioxide 38 H, Anion Gap 9.1, BUN 21 H D, Creatinine 0.80 D, Estimated Creat Clear 57, Estimated GFR 74, Est GFR ( Amer) 89 D, Glucose 96, Calcium 8.3 L I & O for Last 24 hours: Intake & Output 09/22/21 09/23/21 09/24/21 09/25/21 11:59 11:59 11:59 11:59 Intake Total 0 / 0 600 / 600 240 / 240 Output Total 0 / 0 900 / 900 Balance 0 / 0 -300 / -300 240 / 240 Weight 116 lb 15.989 oz 113 lb 103 lb - Constitutional no acute distress - *Routine HEENT Exam Head: Present: normocephalic Eye: Present: EOMI, PERRL ENT: Present: mucous membranes dry - *Routine Neck Exam Absent: JVD - *Routine Respiratory Exam Present: CTA bilaterally - *Routine Cardiovascular Exam Present: RRR - *Routine Abdominal Exam Present: soft - *Routine Extremities Exam Absent: calf tenderness - *Routine Skin Exam Present: intact - *Routine Neurological Exam Present: alert, oriented X3, CN II-XII intact - Routine Psychiatric Exam Present: normal affect, cooperative Assessment and Plan (1) NSTEMI (non-ST elevated myocardial infarction) Status: Acute Category: Medical Code(s): I21.4 - Non-ST elevation (NSTEMI) myocardial infarction (2) COPD (chronic obstructive pulmonary disease) Status: Acute Category: Medical Code(s): J44.9 - Chronic obstructive pulmonary disease, unspecified (3) History of hypertension Status: Acute Category: Medical Code(s): Z86.79 - Personal history of other diseases of the circulatory system (4) Hyperlipidemia Status: Acute Category: Medical Code(s): E78.5 - Hyperlipidemia, unspecified (5) History of elevated glucose Status: Acute Category: Medical Code(s): Z86.39 - Personal history of other endocrine, nutritional and metabolic disease (6) Abnormal EKG Status: Acute Category: Medical Code(s): R94.31 - Abnormal electrocardiogram [ECG] [EKG] (7) Thrombocytosis Status: Acute Category: Medical Code(s): D75.839 - Thrombocytosis, unspecified (8) Hyponatremia Status: Acute Category: Medical Code(s): E87.1 - Hypo-osmolality and hyponatremia (9) Hypocalcemia Status: Acute Category: Medical Code(s): E83.51 - Hypocalcemia (10) Low left ventricular ejection fraction Status: Acute Category: Medical Code(s): R94.30 - Abnormal result of cardiovascular function study, unspecified (11) Elevated left ventricular end-diastolic pressure (LVEDP) Status: Acute Category: Medical Code(s): R94.30 - Abnormal result of cardiovascular function study, unspecified (12) Coronary artery disease Status: Acute Qualifiers: Coronary Disease-Associated Artery/Lesion type: [place] artery [place] vs. transplanted heart: [place] heart Associated angina: without angina Qualified Code(s): I25.10 - Atherosclerotic heart disease of [place] coronary artery without angina pectoris Category: Medical Code(s): I25.10 - Atherosclerotic heart disease of [place] coronary artery without angina pectoris (13) Type 2 acute myocardial infarction Status: Acute Category: Medical Code(s): I21.A1 - Myocardial infarction type 2
[2021-09-25 14:13] LABS: Lymphocytes % 13 % (10-50); Monocytes % 4 % (2-9); Neutrophils % 83 % (42-76); Total Cells Counted 100
[2021-09-25 14:14] LABS: Platelet Estimate Normal
[2021-09-26] VITALS (9 sets, daily range): BP systolic 102–122; BP diastolic 62–89; PULSE 65–100; RESP 16–18; TEMP 36.3–37.2; O2SAT 92–94; BMI 20.6
[2021-09-26 06:31] LABS: MANUAL DIFFERENTIAL MANUAL DIFFERENTIAL (MANUAL DIFF)
[2021-09-26 06:38] LABS: Basophils % 0.2 % (0.1-2.0); Eosinophils # 0.1 K/mm3 (0.0-0.4); Eosinophils % 0.3 % (0.1-12.0); Hematocrit 45.8 % (37.0-47.0); Hemoglobin 14.7 g/dL (12.2-16.2); Lymphocytes # 4.7 K/mm3 (0.7-4.5); Lymphocytes % 31.3 % (10-50); Mean Corpuscular Hemoglobin 30.2 pg (27.0-31.2); Mean Corpuscular Volume 94.4 fl (81-99); Mean Platelet Volume 6.8 fl (7.4-10.4); Monocytes # 1.1 K/mm3 (0.1-1.0); Monocytes % 7.5 % (1.7-9.3); Neutrophils # 9.1 K/mm3 (1.8-7.8); Neutrophils % 60.7 % (37.0-80.0); Platelet Count 535 K/mm3 (142-424); Red Blood Count 4.85 M/mm3 (4.20-5.40); Red Cell Distribution Width 13.6 % (11.5-17.5); White Blood Count 15.1 K/mm3 (4.8-10.8)
[2021-09-26 06:44] LABS: Chloride 84 mmol/L (98-107); Potassium 3.6 mmoL/L (3.5-5.1); Sodium 126 mmol/L (136-145)
[2021-09-26 06:47] LABS: Anion Gap 7.6 mEq/L (5-15); Blood Urea Nitrogen 28 mg/dl (7-17); Carbon Dioxide 38 mmol/L (22.0-30.0); Creatinine Clearance Estimated 58 mL/min (50-200); Estimated Glomerular Filt Rate 74 ml/min (>60); GFR (African American) 89 ML/MIN (>60)
[2021-09-26 06:48] LABS: Calcium 7.8 mg/dl (8.4-10.2); Glucose 91 mg/dl (74-100)
[2021-09-26 06:57] LABS: Lymphocytes % 17 % (10-50); Monocytes % 1 % (2-9); Neutrophils % 79 % (42-76); Platelet Estimate Normal; RBC Morphology Normal; Total Cells Counted 100
--- NOTE | 2021-09-26 10:56 | HMH.ACPN2 ---
Internal Medicine - PN: Subj *Date: 09/27/21 *Time: 07:20 Interval history: doing better but awaiting life vest - labs ok Exam Vital signs and Labs for Last 24 Hours: Temp Pulse Resp BP Pulse Ox 98.2 F 84 16 102/62 L 92 L 09/26/21 08:00 09/26/21 08:00 09/26/21 08:00 09/26/21 08:00 09/26/21 08:00 Laboratory Results - last 24 hr 09/25/21 06:09: Total Counted 100, Neutrophils % (Manual) 83 H, Lymphocytes % (Manual) 13, Monocytes % (Manual) 4, Platelet Estimate Normal 09/26/21 05:40: WBC 15.1 H, RBC 4.85, Hgb 14.7, Hct 45.8, MCV 94.4, MCH 30.2, MCHC 32.0, RDW 13.6, Plt Count 535 H, MPV 6.8 L, Neut % (Auto) 60.7, Lymph % (Auto) 31.3, [place] % (Auto) 7.5, Eos % (Auto) 0.3, Baso % (Auto) 0.2, Neut # (Auto) 9.1 H, Lymph # (Auto) 4.7 H, [place] # (Auto) 1.1 H, Eos # (Auto) 0.1, Baso # (Auto) 0.0, Total Counted 100, Neutrophils % (Manual) 79 H, Band Neutrophils % 3.0, Lymphocytes % (Manual) 17, Monocytes % (Manual) 1 L, Platelet Estimate Normal, RBC Morphology Normal 09/26/21 05:40: Sodium 126 L, Potassium 3.6, Chloride 84 L, Carbon Dioxide 38 H, Anion Gap 7.6, BUN 28 H D, Creatinine 0.80, Estimated Creat Clear 58, Estimated GFR 74, Est GFR ( Amer) 89, Glucose 91, Calcium 7.8 L I & O for Last 24 hours: Intake & Output 09/23/21 09/24/21 09/25/21 09/26/21 11:59 11:59 11:59 11:59 Intake Total 0 / 0 600 / 600 240 / 240 780 / 780 Output Total 0 / 0 900 / 900 Balance 0 / 0 -300 / -300 240 / 240 780 / 780 Weight 116 lb 15.989 oz 113 lb 103 lb 105 lb - Constitutional no acute distress - *Routine HEENT Exam Head: Present: normocephalic Eye: Present: EOMI, PERRL ENT: Present: mucous membranes dry - *Routine Neck Exam Present: supple. Absent: JVD - *Routine Respiratory Exam Present: CTA bilaterally - *Routine Cardiovascular Exam Present: RRR, murmur - *Routine Abdominal Exam Present: soft - *Routine Extremities Exam Absent: edema - *Routine Skin Exam Present: intact - *Routine Neurological Exam Present: alert, CN II-XII intact - Routine Psychiatric Exam Present: normal affect Assessment and Plan (1) NSTEMI (non-ST elevated myocardial infarction) Status: Acute Category: Medical Code(s): I21.4 - Non-ST elevation (NSTEMI) myocardial infarction (2) COPD (chronic obstructive pulmonary disease) Status: Acute Category: Medical Code(s): J44.9 - Chronic obstructive pulmonary disease, unspecified (3) History of hypertension Status: Acute Category: Medical Code(s): Z86.79 - Personal history of other diseases of the circulatory system (4) Hyperlipidemia Status: Acute Category: Medical Code(s): E78.5 - Hyperlipidemia, unspecified (5) History of elevated glucose Status: Acute Category: Medical Code(s): Z86.39 - Personal history of other endocrine, nutritional and metabolic disease (6) Abnormal EKG Status: Acute Category: Medical Code(s): R94.31 - Abnormal electrocardiogram [ECG] [EKG] (7) Thrombocytosis Status: Acute Category: Medical Code(s): D75.839 - Thrombocytosis, unspecified (8) Hyponatremia Status: Acute Category: Medical Code(s): E87.1 - Hypo-osmolality and hyponatremia (9) Hypocalcemia Status: Acute Category: Medical Code(s): E83.51 - Hypocalcemia (10) Low left ventricular ejection fraction Status: Acute Category: Medical Code(s): R94.30 - Abnormal result of cardiovascular function study, unspecified (11) Elevated left ventricular end-diastolic pressure (LVEDP) Status: Acute Category: Medical Code(s): R94.30 - Abnormal result of cardiovascular function study, unspecified (12) Coronary artery disease Status: Acute Qualifiers: Coronary Disease-Associated Artery/Lesion type: [place] artery [place] vs. transplanted heart: [place] heart Associated angina: without angina Qualified Code(s): I25.10 - Atherosclerotic heart disease of [place] coronary artery without angina pectoris Category: Medical
--- NOTE | 2021-09-26 15:07 | HMH.ACPN ---
Internal Medicine - PN: Subj *Date: 09/26/21 *Time: 15:07 Exam Vital signs and Labs for Last 24 Hours: Temp Pulse Resp BP Pulse Ox 98.0 F 99 H 16 111/89 94 L 09/26/21 12:00 09/26/21 13:20 09/26/21 12:00 09/26/21 12:00 09/26/21 12:00 Laboratory Results - last 24 hr 09/26/21 05:40: WBC 15.1 H, RBC 4.85, Hgb 14.7, Hct 45.8, MCV 94.4, MCH 30.2, MCHC 32.0, RDW 13.6, Plt Count 535 H, MPV 6.8 L, Neut % (Auto) 60.7, Lymph % (Auto) 31.3, [place] % (Auto) 7.5, Eos % (Auto) 0.3, Baso % (Auto) 0.2, Neut # (Auto) 9.1 H, Lymph # (Auto) 4.7 H, [place] # (Auto) 1.1 H, Eos # (Auto) 0.1, Baso # (Auto) 0.0, Total Counted 100, Neutrophils % (Manual) 79 H, Band Neutrophils % 3.0, Lymphocytes % (Manual) 17, Monocytes % (Manual) 1 L, Platelet Estimate Normal, RBC Morphology Normal 09/26/21 05:40: Sodium 126 L, Potassium 3.6, Chloride 84 L, Carbon Dioxide 38 H, Anion Gap 7.6, BUN 28 H D, Creatinine 0.80, Estimated Creat Clear 58, Estimated GFR 74, Est GFR ( Amer) 89, Glucose 91, Calcium 7.8 L I & O for Last 24 hours: Intake & Output 09/23/21 09/24/21 09/25/21 09/26/21 23:59 23:59 23:59 23:59 Intake Total 480 / 480 360 / 360 780 / 780 240 / 240 Output Total 0 / 0 900 / 900 Balance 480 / 480 -540 / -540 780 / 780 240 / 240 Weight 53 kg 51.256 kg 46.72 kg 47.627 kg Assessment and Plan (1) NSTEMI (non-ST elevated myocardial infarction) Status: Acute Category: Medical Code(s): I21.4 - Non-ST elevation (NSTEMI) myocardial infarction (2) COPD (chronic obstructive pulmonary disease) Status: Acute Category: Medical Code(s): J44.9 - Chronic obstructive pulmonary disease, unspecified (3) History of hypertension Status: Acute Category: Medical Code(s): Z86.79 - Personal history of other diseases of the circulatory system (4) Hyperlipidemia Status: Acute Category: Medical Code(s): E78.5 - Hyperlipidemia, unspecified (5) History of elevated glucose Status: Acute Category: Medical Code(s): Z86.39 - Personal history of other endocrine, nutritional and metabolic disease (6) Abnormal EKG Status: Acute Category: Medical Code(s): R94.31 - Abnormal electrocardiogram [ECG] [EKG] (7) Thrombocytosis Status: Acute Category: Medical Code(s): D75.839 - Thrombocytosis, unspecified (8) Hyponatremia Status: Acute Category: Medical Code(s): E87.1 - Hypo-osmolality and hyponatremia (9) Hypocalcemia Status: Acute Category: Medical Code(s): E83.51 - Hypocalcemia (10) Low left ventricular ejection fraction Status: Acute Category: Medical Code(s): R94.30 - Abnormal result of cardiovascular function study, unspecified (11) Elevated left ventricular end-diastolic pressure (LVEDP) Status: Acute Category: Medical Code(s): R94.30 - Abnormal result of cardiovascular function study, unspecified (12) Coronary artery disease Status: Acute Qualifiers: Coronary Disease-Associated Artery/Lesion type: [place] artery [place] vs. transplanted heart: [place] heart Associated angina: without angina Qualified Code(s): I25.10 - Atherosclerotic heart disease of [place] coronary artery without angina pectoris Category: Medical Code(s): I25.10 - Atherosclerotic heart disease of [place] coronary artery without angina pectoris (13) Type 2 acute myocardial infarction Status: Acute Category: Medical Code(s): I21.A1 - Myocardial infarction type 2 The patient's infection will respond to the chosen ABx?: Yes Is the patient receiving the right drug, dose, and route?: Yes Could a more targeted ABx be ordered?: No (CONTINUE CURRENT ABX, AFEBRILE)
[2021-09-27] VITALS (7 sets, daily range): BP systolic 104–111; BP diastolic 59–73; PULSE 67–101; RESP 16–18; TEMP 36.5–36.9; O2SAT 90–95; BMI 22.6
[2021-09-27 07:18] LABS: MANUAL DIFFERENTIAL MANUAL DIFFERENTIAL (MANUAL DIFF)
[2021-09-27 07:30] LABS: Basophils # 0.1 K/mm3 (0-0.2); Basophils % 0.3 % (0.1-2.0); Eosinophils # 0.1 K/mm3 (0.0-0.4); Eosinophils % 0.5 % (0.1-12.0); Hematocrit 45.4 % (37.0-47.0); Lymphocytes % 32.6 % (10-50); Mean Corpuscular HGB Conc 33.1 g/dL (31.8-35.4); Mean Corpuscular Hemoglobin 30.6 pg (27.0-31.2); Mean Corpuscular Volume 92.5 fl (81-99); Mean Platelet Volume 6.9 fl (7.4-10.4); Monocytes # 1.1 K/mm3 (0.1-1.0); Monocytes % 6.9 % (1.7-9.3); Neutrophils # 9.2 K/mm3 (1.8-7.8); Neutrophils % 59.7 % (37.0-80.0); Platelet Count 561 K/mm3 (142-424); Red Blood Count 4.91 M/mm3 (4.20-5.40); Red Cell Distribution Width 13.5 % (11.5-17.5); White Blood Count 15.4 K/mm3 (4.8-10.8)
[2021-09-27 07:33] LABS: Chloride 81 mmol/L (98-107); Sodium 126 mmol/L (136-145)
[2021-09-27 07:34] LABS: Potassium 3.5 mmoL/L (3.5-5.1)
[2021-09-27 07:37] LABS: Blood Urea Nitrogen 19 mg/dl (7-17); Calcium 8.2 mg/dl (8.4-10.2); Creatinine Clearance Estimated 73 mL/min (50-200); Estimated Glomerular Filt Rate 86 ml/min (>60); GFR (African American) 104 ML/MIN (>60); Glucose 87 mg/dl (74-100)
[2021-09-27 07:53] LABS: Anion Gap 7.5 mEq/L (5-15); Carbon Dioxide 41 mmol/L (22.0-30.0)
--- NOTE | 2021-09-27 09:22 | HMH.PULMPN ---
Internal Medicine - PN: Subj *Date: 09/27/21 *Time: 10:47 Interval history: No acute respiratory events overnight. Exam - Constitutional Constitutional:: Present: no acute distress, comfortable - HENMT Exam HENMT: Present: normocephalic, atraumatic - Eye Exam Eyes:: Present: normal appearance both eyes and related structures - Neck Exam Neck:: Present: normal visual inspection - Respiratory Exam Respiratory:: Present: able to speak in complete sentences, no respiratory distress. Absent: wheezing - Cardiovascular Exam Cardiac:: Present: S1, S2 - GI Exam GI:: Present: soft, no hepatosplenomegaly - Skin Exam Skin: Present: warm, no rash - Neurological Exam Neurological: Present: alert, awake - Extremities Exam Extremities: Present: no cyanosis, no clubbing, no edema Assessment and Plan (1) NSTEMI (non-ST elevated myocardial infarction) Status: Acute Category: Medical Code(s): I21.4 - Non-ST elevation (NSTEMI) myocardial infarction (2) COPD (chronic obstructive pulmonary disease) Status: Acute Category: Medical Code(s): J44.9 - Chronic obstructive pulmonary disease, unspecified (3) History of hypertension Status: Acute Category: Medical Code(s): Z86.79 - Personal history of other diseases of the circulatory system (4) Hyperlipidemia Status: Acute Category: Medical Code(s): E78.5 - Hyperlipidemia, unspecified (5) History of elevated glucose Status: Acute Category: Medical Code(s): Z86.39 - Personal history of other endocrine, nutritional and metabolic disease (6) Abnormal EKG Status: Acute Category: Medical Code(s): R94.31 - Abnormal electrocardiogram [ECG] [EKG] (7) Thrombocytosis Status: Acute Category: Medical Code(s): D75.839 - Thrombocytosis, unspecified (8) Hyponatremia Status: Acute Category: Medical Code(s): E87.1 - Hypo-osmolality and hyponatremia (9) Hypocalcemia Status: Acute Category: Medical Code(s): E83.51 - Hypocalcemia (10) Low left ventricular ejection fraction Status: Acute Category: Medical Code(s): R94.30 - Abnormal result of cardiovascular function study, unspecified (11) Elevated left ventricular end-diastolic pressure (LVEDP) Status: Acute Category: Medical Code(s): R94.30 - Abnormal result of cardiovascular function study, unspecified (12) Coronary artery disease Status: Acute Qualifiers: Coronary Disease-Associated Artery/Lesion type: wainwright artery [place] vs. transplanted heart: wainwright heart Associated angina: without angina Qualified Code(s): I25.10 - Atherosclerotic heart disease of wainwright coronary artery without angina pectoris Category: Medical Code(s): I25.10 - Atherosclerotic heart disease of wainwright coronary artery without angina pectoris (13) Type 2 acute myocardial infarction Status: Acute Category: Medical Code(s): I21.A1 - Myocardial infarction type 2 - Assessment and plan all Dx Assessment and Plan for all problems:: #Acute hypoxic respiratory failure: #COPD exacerbation: 55-year-old female current smoker greater than 27-[facility]-cyus smoking history. Carries a diagnosis COPD. Not using any oxygen at baseline. Recently admitted to the hospital at [facility], treated with antibiotics and diuretics for exertional dyspnea and was discharged home and patient presented hospital again with similar complaints are noted to have elevated troponin and transferred here for further evaluation COVID-19 and flu PCR negative. Afebrile on presentation. Chest x-ray did not show any acute pulmonary infiltrates, hyperinflated lungs. Examination revealed mild respiratory distress with diffuse wheezing. Bilateral 2+ lower extremity edema noted. Saturating 99% nonrebreather, weaned to 2 L nasal cannula saturations maintained at 94% and above. ABG performed on 2 L nasal cannula showed PO2 148, PCO2 48 and pH of 7.34. Interval Update: Patient respiratory remained st
[2021-09-27 11:17] LABS: Eosinophils % 1 % (0-3); Lymphocytes % 35 % (10-50); Monocytes % 3 % (2-9); Neutrophils % 61 % (42-76); RBC Morphology Normal; Total Cells Counted 100
[2021-09-27 11:18] LABS: Platelet Estimate Marked Increase
--- NOTE | 2021-09-27 11:44 | HMH.PNCARD ---
Subjective Date: 09/27/21 Time: 09:00 Principal diagnosis: CHF, Cardiomyopathy Interval history: This is a 55-year-old white female underwent left cardiac catheterization with no percutaneous intervention. The patient does have systolic congestive heart failure and has a LifeVest in place. This morning she denies any chest pain or pressure. She denies any shortness of breath. She thinks her anxiety has significantly improved. She denies any fever, chills, nausea, vomiting, diarrhea, PND orthopnea. Her vital signs are stable. The patient states that she is ready to be discharged home. Exam Vital signs and Labs for Last 24 Hours: Temp Pulse Resp BP Pulse Ox 97.7 F 100 H 16 106/73 L 95 09/27/21 08:00 09/27/21 11:12 09/27/21 08:00 09/27/21 08:00 09/27/21 08:00 Laboratory Results - last 24 hr 09/27/21 06:15: WBC 15.4 H, RBC 4.91, Hgb 15.0, Hct 45.4, MCV 92.5, MCH 30.6, MCHC 33.1, RDW 13.5, Plt Count 561 H, MPV 6.9 L, Neut % (Auto) 59.7, Lymph % (Auto) 32.6, [place] % (Auto) 6.9, Eos % (Auto) 0.5, Baso % (Auto) 0.3, Neut # (Auto) 9.2 H, Lymph # (Auto) 5.0 H, [place] # (Auto) 1.1 H, Eos # (Auto) 0.1, Baso # (Auto) 0.1, Total Counted 100, Neutrophils % (Manual) 61, Lymphocytes % (Manual) 35, Monocytes % (Manual) 3, Eosinophils % (Manual) 1, Platelet Estimate Marked increase, RBC Morphology Normal 09/27/21 06:15: Sodium 126 L, Potassium 3.5, Chloride 81 L, Carbon Dioxide 41 H*, Anion Gap 7.5, BUN 19 H D, Creatinine 0.70, Estimated Creat Clear 73, Estimated GFR 86, Est GFR ( Amer) 104, Glucose 87, Calcium 8.2 L I & O for Last 24 hours: Intake & Output 02/25/22 02/26/22 02/27/22 02/28/22 23:59 23:59 23:59 23:59 Intake Total 360 / 360 780 / 780 600 / 600 120 / 120 Output Total 900 / 900 500 / 500 Balance -540 / -540 780 / 780 100 / 100 120 / 120 Weight 113 lb 103 lb 105 lb 115 lb - Constitutional no acute distress, average body habitus - *Routine HEENT Exam Head: Present: normocephalic, atraumatic Eye: Present: EOMI, PERRL ENT: Present: mucous membranes moist - *Routine Neck Exam Present: supple, full ROM, normal carotid upstroke. Absent: JVD, carotid bruit, lymphadenopathy - *Routine Respiratory Exam Present: CTA bilaterally - *Routine Cardiovascular Exam Present: RRR, Normal S1, Normal S2. Absent: murmur - *Routine Abdominal Exam Present: soft, normoactive bowel sounds. Absent: tenderness, distended - *Routine Extremities Exam Present: full ROM, pulses intact, normal capillary refill. Absent: cyanosis, clubbing, edema - *Routine Skin Exam Present: intact, warm. Absent: erythema, rash - *Routine Neurological Exam Present: alert, oriented X3, CN II-XII intact. Absent: sensory deficit, motor deficit Progress Note: A&P (1) Systolic CHF Status: Acute (2) LV dysfunction Status: Acute (3) NSTEMI (non-ST elevated myocardial infarction) Status: Acute (4) COPD (chronic obstructive pulmonary disease) Status: Acute (5) History of hypertension Status: Acute (6) Hyperlipidemia Status: Acute (7) History of elevated glucose Status: Acute (8) Abnormal EKG Status: Acute (9) Thrombocytosis Status: Acute (10) Hyponatremia Status: Acute (11) Hypocalcemia Status: Acute (12) Low left ventricular ejection fraction Status: Acute (13) Elevated left ventricular end-diastolic pressure (LVEDP) Status: Acute (14) Coronary artery disease Status: Chronic (15) Type 2 acute myocardial infarction Status: Acute Assessment and Plan for All Diagnoses:: Plan: 1. The patient was admitted to the hospital with a type II non-ST elevation myocardial infarction. She does have coronary artery disease but no percutaneous intervention was needed. Denies any chest pain or pressure. Her coronary artery disease is likely stable. 2. The patient does have systolic congestive heart failure with severe LV dysfunction. Her estimated ejection fraction
--- NOTE | 2021-09-27 12:44 | HMH.DCSUM ---
General - General Admission date:: 09/23/21 Discharge date: 09/27/21 HPI HPI: 55-year-old female patient presented to the emergency department at [facility] for increasing shortness of breath and cough. son reports she was inpatient at [facility] for bronchitis over the weekend and received antibiotics he is unsure what medication she received. Son also reports that she is a longtime tobacco smoker and carries a diagnosis of COPD. While in the emergency department it was discovered she had elevated troponin levels 7100, cardiology was consulted and she was transferred to [facility]. Son also reports his grandmother, patient's mother is at home with hospice care and is actively dying. He reports he knows his mother has been sick for a while but she will not report any complaints due to caring for her mother. Son also reports she has had difficulty swallowing pills for a while and has been coughing after eating. He reports his mother will not discuss her shortness of breath, swallowing difficulties, chest pain, or other visible distress with family. 09/23/21 CXR: FINDINGS: The heart is normal size. The mediastinum is normal. There are coarse interstitial opacities in the lungs favoring chronic fibrosis. There are no pleural effusions. There is no pneumothorax. There is no osseous abnormality. IMPRESSION: No acute cardiopulmonary process Reviewed, Interpreted and Dictated by Amilcar Barbosa MD 55-year-old female patient sitting up to bed is in respiratory distress, current saturations 90% on room nonrebreather. Patient assisted to sitting up at bedside she is able to breathe a little better here and is reminded to not speak. She denies any chest pain, son is in room, cardiology has scheduled her for catheterization this morning Hospital Course Hospital Course: Abnormal Lab Results 09/27/21 06:15: WBC 15.4 H, Plt Count 561 H, MPV 6.9 L, Neut # (Auto) 9.2 H, Lymph # (Auto) 5.0 H, [place] # (Auto) 1.1 H 09/27/21 06:15: Sodium 126 L, Chloride 81 L, Carbon Dioxide 41 H*, BUN 19 H D, Calcium 8.2 L Ordering Physician: Ramesh Sanchez MD Date of Service: 09/23/21 Procedure(s): CL lhc w ventricle Accession Number(s): [id number] cc: Ramesh Sanchez MD; Rita Carson ~ APPROVED REPORT Patient Location: Inpatient PROCEDURES Left heart catheterization Left ventriculogram Selective coronary angiogram INDICATION Acute non-ST elevation myocardial infarction, Abnormal echocardiogram ejection fraction 20 to 25% with anterior apical akinesis, Decompensated class IV congestive heart failure, Informed consent was obtained prior to the procedure. COMPLICATIONS None Estimated Blood Loss: Less than 10 mls TECHNIQUE One percent lidocaine used to anesthetize the right anterior aspect of the wrist. The right radial artery was accessed via the Seldinger technique. A 6 [place] sheath was placed in the right radial artery. 2.5 mg of verapamil, 800 mcg of nitroglycerin, 1mg Lidocaine and 5000 U Heparin were given through the arterial sheath. The papa catheter was also used to perform left heart catheterization, left ventriculogram and selective coronary angiogram. At the end of the procedure the sheath was removed good hemostasis was achieved using Traclet band, patient was transferred to the postop holding area in stable condition. ANGIOGRAPHIC RESULTS The left main artery Normal The left anterior descending artery Has proximal mild 10% luminal irregularities. Distal to a large first diagonal artery and a large septal de icer kit assembler the mid LAD then tapers to 60 to 70% The circumflex artery Is a vestigial vessel and normal The right coronary artery Is a large dominant vessel and has a proximal concentric 30 to 40% stenosis with a mid vessel concentric long 40% stenosis. A large posterior descending arter
--- NOTE | 2021-09-27 13:54 | HMH.PHAINT ---
Discharge counseling complete. Informed pt of changes to medications and new medications. Informed pt of purpose, how to take, and potential side effects of new medicine. It took a little longer as there were many new medications and she seemed a little overwhelmed, but pt had no questions or concerns at the end.
== END 2021-09-27 15:03 | disposition home or self-care (01) | DRG 280 ==
PROVIDERS: Internal Medicine; Internal Medicine Pulmonary Disease; Physician Assistant; Admitting Provider Emergency Medicine; PCP Emergency Medicine; Visit Provider Emergency Medicine
PROC: 4A023N7 Measurement of Cardiac Sampling and Pressure, Left Heart, Percutaneous Approach (ICD-10-PCS; principal; 2021-09-23 12:15)
DX: I21.A1 Myocardial infarction type 2 (principal); J96.01 Acute respiratory failure with hypoxia; I50.23 Acute on chronic systolic (congestive) heart failure; J44.1 Chronic obstructive pulmonary disease with (acute) exacerbation; E87.1 Hypo-osmolality and hyponatremia; E78.5 Hyperlipidemia, unspecified; F17.210 Nicotine dependence, cigarettes, uncomplicated; Z20.822 Contact with and (suspected) exposure to COVID-19; I25.5 Ischemic cardiomyopathy; E83.51 Hypocalcemia; I25.10 Atherosclerotic heart disease of native coronary artery without angina pectoris; D75.839 Thrombocytosis, unspecified; I11.0 Hypertensive heart disease with heart failure
CPT/HCPCS: 36415; 71045; 80048; 82803; 83735; 85007; 85014; 85018; 85025; 85048; 85049; 85730; 87486; 87581; 87632; 87798; 92610; 93306; 93458; 94640; 94760; 94761; 99152; 99153; C1725; C1769; C9803; J0574; J0696; J1644; J2405; Q9967; U0003; U0005

== ENCOUNTER 2021-12-17 16:03 | Emergency (ER) | payer MEDICARE, MEDICAID, SELFPAY ==
[2021-12-17 16:05] VITALS: BP 119/78; PULSE 88; RESP 20; TEMP 36.6; O2SAT 94; BMI 20.5
--- NOTE | 2021-12-17 16:26 | XR_ITS ---
PROCEDURE INFORMATION: Exam: XR Chest Exam date and time: 12/17/2021 4:36 PM Age: 56 years old Clinical indication: Shortness of breath; Additional info: SOB TECHNIQUE: Imaging protocol: XR of the chest. Views: 2 views. COMPARISON: No relevant prior studies available. FINDINGS: Lungs: Hyperinflated lungs, as can be seen in COPD. No lobar consolidation or pulmonary edema. Pleural spaces: Blunting of the costophrenic angles posteriorly. This may be scarring or minimal effusions. Heart/Mediastinum: Unremarkable. No cardiomegaly. Bones/joints: Unremarkable. IMPRESSION: 1. Hyperinflated lungs, as can be seen in COPD. 2. Blunting of the costophrenic angles posteriorly. This may be scarring or minimal effusions. 3. No lobar consolidation or pulmonary edema. Plain films are relatively insensitive for detecting any possible ground glass opacities.
--- NOTE | 2021-12-17 16:52 | PC.NURSE ---
Pt returned from rad
--- NOTE | 2021-12-17 16:52 | HMH.EDGENADL ---
ED Disposition Clinical Impression: COPD exacerbation, Hypokalemia, Hypomagnesemia Acute bronchitis Qualifiers: Bronchitis organism: unspecified organism Qualified Code(s): J20.9 - Acute bronchitis, unspecified Disposition: Home, Self-Care Condition on Discharge: Good Instructions: DI for Acute Bronchitis, DI for Chronic Obstructive Pulmonary Disease, DI for Hypokalemia, DI for Hypomagnesemia Additional Instructions: Potassium and magnesium as prescribed. Follow-up with your primary care provider next week to have potassium and magnesium levels rechecked. Continue antibiotics and prednisone as previously prescribed. Continue your nebulizer and inhalers as prescribed. Prescriptions: Potassium Chloride [K-Tab ER 20 mEq] 20 meq PO DAILY #10 tab Transmission Status: Pending to [facility] Magnesium Oxide 400 mg PO DAILY #10 tab Transmission Status: Pending to [facility] Referrals: Provider,Referral, [Primary Care Provider] - - Critical Care Critical Care Time: No Attestation: On 12/17/21, the high probability of a clinically significant, sudden or life threatening deterioration of the following system(s) required my full and direct attention, intervention and personal management. The time I documented below is in addition to time spent performing reported procedures but includes the following listed in this critical care notation. Medical Decision Making - Joses[place] Inquiry Pt receiving controlled substance: No Vital Signs: 12/17/21 16:05 12/17/21 17:05 Temperature 97.8 F Temperature Source Oral Pulse Rate 82 Pulse Rate [Radial] 88 Respiratory Rate 20 20 Blood Pressure 131/84 Blood Pressure [Right Radial Artery] 119/78 Blood Pressure Mean [Right Radial Artery] 91 Blood Pressure Position [Right Radial Artery] Sitting 02 Sat by Pulse Oximetry 94 L 96 Oxygen Delivery Method Room Air Room Air - Lab Data Lab Results 12/17/21 16:05: SARS-CoV-2 (PCR) Not detected, Influenza A Untype (PCR) Not detected, Influenza Type B (PCR) Not detected 12/17/21 16:35: WBC 7.5, RBC 4.87, Hgb 14.5, Hct 44.1, MCV 90.5, MCH 29.9, MCHC 33.0, RDW 14.2, Plt Count 470 H, MPV 7.3 L, Neut % (Auto) 61.5, Lymph % (Auto) 26.6, [place] % (Auto) 9.5 H, Eos % (Auto) 0.1, Baso % (Auto) 2.4 H, Neut # (Auto) 4.6, Lymph # (Auto) 2.0, [place] # (Auto) 0.7, Eos # (Auto) 0.0, Baso # (Auto) 0.2 12/17/21 16:35: Sodium 133 L, Potassium 2.3 L*, Chloride 80 L, Carbon Dioxide 43 H*, Anion Gap 12.3, BUN 7, Creatinine 0.60, Estimated Creat Clear 77, Estimated GFR 103, Est GFR ( Amer) 124, Glucose 75, Calcium 9.4, Troponin I 0.02 12/17/21 16:35: NT-Pro-B Natriuret Pep 66.2 12/17/21 16:35: Magnesium 1.3 L 12/17/21 19:14: Troponin I 0.03 Result diagrams: 12/17/21 16:35 12/17/21 16:35 Orders (Tests/Meds): ED MEDICATIONS Discontinued Medications Generic Name Dose Route Start Last Admin Trade Name Freq PRN Reason Stop Dose Admin Albuterol/Ipratropium 3 ml 12/17/21 17:08 12/17/21 17:13 Ipratropium/Albuterol 3 Ml Neb IH 12/17/21 17:09 3 ml ONCE ONE Administration Potassium Chloride/Water 100 mls @ 50 mls/hr 12/17/21 17:10 12/17/21 17:30 Potassium Chloride 20meq/100ml Ivpb IV 12/17/21 19:09 50 mls/hr ONCE ONE Administration Magnesium Sulfate 2 gm in 50 mls @ 50 mls/hr 12/17/21 18:18 12/17/21 18:30 Magnesium Sulfate 2gm/50ml Premix IV 12/17/21 19:17 50 mls/hr ONCE ONE Administration Methylprednisolone Sodium Succinate 125 mg 12/17/21 17:08 12/17/21 17:13 Methylprednisolone Sod Succ 125mg Vial IV 12/17/21 17:09 125 mg ONCE ONE Administration Potassium Chloride 40 meq 12/17/21 17:10 12/17/21 17:30 Potassium Chloride 20meq Tab PO 12/17/21 17:11 Not Given ONCE ONE Potassium Chloride 40 meq 12/17/21 17:31 12/17/21 17:31 Potassium Chloride 20meq/15ml Udc PO 12/17/21 17:32 40 meq ONCE ONE Administration ORDERS Category Date Time Status Troponin I
[2021-12-17 16:53] LABS: Blood Urea Nitrogen 7 mg/dl (7-17); Calcium 9.4 mg/dl (8.4-10.2); Chloride 80 mmol/L (98-107); Creatinine Clearance Estimated 77 mL/min (50-200); Estimated Glomerular Filt Rate 103 ml/min (>60); GFR (African American) 124 ML/MIN (>60); Glucose 75 mg/dl (74-100); Sodium 133 mmol/L (136-145)
--- NOTE | 2021-12-17 16:57 | ECG_ITS ---
APPROVED REPORT Exam: Resting ECG HR:74 bpm ECG Measurements Heart Rate 74 AXES AR 144 P 67 QRSd 81 QRS 67 QT 385 T 66 QTc 412 Conclusion SINUS RHYTHM NONSPECIFIC T-WAVE ABNORMALITY BORDERLINE ECG UNCONFIRMED REPORT Electronically signed by : Jimbo Esparza MD 12/18/2021 16:00:50
[2021-12-17 16:59] LABS: Basophils # 0.2 K/mm3 (0-0.2); Basophils % 2.4 % (0.1-2.0); Eosinophils % 0.1 % (0.1-12.0); Hematocrit 44.1 % (37.0-47.0); Hemoglobin 14.5 g/dL (12.2-16.2); Lymphocytes % 26.6 % (10-50); Mean Corpuscular Hemoglobin 29.9 pg (27.0-31.2); Mean Corpuscular Volume 90.5 fl (81-99); Mean Platelet Volume 7.3 fl (7.4-10.4); Monocytes # 0.7 K/mm3 (0.1-1.0); Monocytes % 9.5 % (1.7-9.3); Neutrophils # 4.6 K/mm3 (1.8-7.8); Neutrophils % 61.5 % (37.0-80.0); Platelet Count 470 K/mm3 (142-424); Red Blood Count 4.87 M/mm3 (4.20-5.40); Red Cell Distribution Width 14.2 % (11.5-17.5); White Blood Count 7.5 K/mm3 (4.8-10.8)
[2021-12-17 17:03] LABS: NT Pro Brain Natriuretic Pep. 66.2 pg/mL (0-125)
[2021-12-17 17:03] LABS: Coronavirus 19, PCR Not Detected (NotDetected); Influenza A, PCR Not Detected (NotDetected); Influenza B, PCR Not Detected (NotDetected)
--- NOTE | 2021-12-17 17:03 | PC.NURSE ---
CHEL PERDOMO at
[2021-12-17 17:05] VITALS: BP 131/84; PULSE 82; RESP 20; O2SAT 96
[2021-12-17 17:05] LABS: Troponin I 0.02 ng/ml (0.00-0.034)
[2021-12-17 17:09] LABS: Anion Gap 12.3 mEq/L (5-15); Carbon Dioxide 43 mmol/L (22.0-30.0)
[2021-12-17 17:10] LABS: Potassium 2.3 mmoL/L (3.5-5.1)
[2021-12-17 17:22] LABS: Magnesium 1.3 mg/dl (1.6-2.3)
[2021-12-17 19:41] LABS: Troponin I 0.03 ng/ml (0.00-0.034)
[2021-12-17 22:16] VITALS: BP 131/84; PULSE 82; RESP 17; TEMP 36.7; O2SAT 96
== END 2021-12-17 22:03 | disposition home or self-care (01) ==
PROVIDERS: Emergency Provider Emergency Medicine
DX: J44.1 Chronic obstructive pulmonary disease with (acute) exacerbation (principal); J20.9 Acute bronchitis, unspecified; E87.6 Hypokalemia; E83.42 Hypomagnesemia; E78.5 Hyperlipidemia, unspecified; I10 Essential (primary) hypertension; Z87.891 Personal history of nicotine dependence; Z79.899 Other long term (current) drug therapy
CPT/HCPCS: 36415; 71046; 80048; 83735; 83880; 84484; 85025; 93005; 96365; 96366; 96367; 96375; 99284; C9803; J3475; U0003; U0005

== ENCOUNTER → 2022-01-06 14:41 | Outpatient (CLI) | payer MEDICARE, MEDICAID, SELFPAY ==
--- NOTE | 2022-01-06 | CA_ITS ---
APPROVED REPORT EXAM: Comprehensive 2D, Doppler, and color-flow Echocardiogram Hatchery Worker: JESSY Mace, RVS Ht: 5 ft 0 in Wt: 115lbs BSA: 1.48 BP: 128/75 mmHg Indications: CAD-Last EF 20-25%, SOB, CM, smoker, NSTEMI M-Mode Dimensions LVDd 4.09 cm (3.5-5.7) LVDs 2.73 cm (3.5-5.7) EF (Teich) 55.00% FS 30.00% EDV (Teich) 73.80 mL ESV (Teich) 27.80 mL Conclusion 1. Limited echocardiogram was obtained to evaluate left ventricular systolic function. 2. Normal left ventricular size, estimated ejection fraction 55% with no regional wall motion abnormality. 3. No significant pericardial effusion noted. Electronically signed by : Louis Escamilla MD 01/07/2022 12:39:53
== END ==
PROVIDERS: Visit Provider Internal Medicine
DX: I25.10 Atherosclerotic heart disease of native coronary artery without angina pectoris (principal)
CPT/HCPCS: 93308

== ENCOUNTER 2022-04-08 21:58 | Emergency (ER) | payer MEDICARE, MEDICAID, SELFPAY ==
--- NOTE | 2022-04-08 22:05 | ECG_ITS ---
APPROVED REPORT Exam: Resting ECG HR:108 bpm ECG Measurements Heart Rate 108 AXES PA 144 P 79 QRSd 83 QRS 74 QT 323 T 71 QTc 386 Conclusion SINUS TACHYCARDIA ABNORMAL RHYTHM ECG UNCONFIRMED REPORT Electronically signed by : Jimbo Esparza MD 04/10/2022 15:25:46
[2022-04-08 22:12] LABS: Coronavirus 19, PCR Not Detected (NotDetected); Influenza A, PCR Not Detected (NotDetected); Influenza B, PCR Not Detected (NotDetected)
[2022-04-08 22:19] VITALS: BP 113/65; PULSE 106; RESP 18; TEMP 36.6; O2SAT 97; BMI 21.7
[2022-04-08 22:46] VITALS: BP 113/65; PULSE 105; RESP 16; TEMP 36.6; O2SAT 99
== END 2022-04-08 22:50 | disposition left against medical advice (07) ==
PROVIDERS: Emergency Provider Emergency Medicine; PCP Emergency Medicine
DX: M79.89 Other specified soft tissue disorders (principal); R51.9 Headache, unspecified; F17.210 Nicotine dependence, cigarettes, uncomplicated; Z79.51 Long term (current) use of inhaled steroids; Z79.02 Long term (current) use of antithrombotics/antiplatelets; Z79.82 Long term (current) use of aspirin; Z79.899 Other long term (current) drug therapy; Z20.822 Contact with and (suspected) exposure to COVID-19; Z53.21 Procedure and treatment not carried out due to patient leaving prior to being seen by health care provider
CPT/HCPCS: 93005; 99211; 99283; C9803; U0003; U0005

== ENCOUNTER 2022-05-19 01:25 | Emergency (ER) | payer MEDICARE, MEDICAID, SELFPAY ==
[2022-05-19 01:26] VITALS: BP 164/76; PULSE 95; RESP 16; TEMP 36.6; O2SAT 98; BMI 21.9
--- NOTE | 2022-05-19 01:35 | ECG_ITS ---
APPROVED REPORT Exam: Resting ECG HR:86 bpm ECG Measurements Heart Rate 86 AXES WV 142 P 72 QRSd 82 QRS 75 QT 367 T 61 QTc 410 Conclusion SINUS RHYTHM WITH SINUS ARRHYTHMIA NORMAL ECG UNCONFIRMED REPORT Electronically signed by : Jimbo Esparza MD 05/19/2022 17:14:34
--- NOTE | 2022-05-19 01:54 | PC.NURSE ---
Patient called out and requested a breathing treatment and something for her nerves. States that what she takes at home for her nerves doesn't work. Patient current oxygen saturation is 95% and rr is 14. notified.
[2022-05-19 01:58] VITALS: BMI 22.4
[2022-05-19 02:10] VITALS: PULSE 83; PULSE 90
--- NOTE | 2022-05-19 02:16 | XR_ITS ---
PROCEDURE INFORMATION: Exam: XR Chest Exam date and time: 05/19/2022 2:18 AM Age: 56 years old Clinical indication: Shortness of breath; Patient HX: Copd, former smoker; Additional info: SOA TECHNIQUE: Imaging protocol: Radiologic exam of the chest. Views: 2 views. COMPARISON: CR XR CHEST 2V 12/17/2021 4:36 PM FINDINGS: Lungs: Hyperinflation. Mild prominence of interstitial markings, similar to previous examination. No consolidation. Pleural spaces: No significant pleural effusion. No pneumothorax. Heart/Mediastinum: No cardiomegaly. Atherosclerosis of thoracic aorta. Bones/joints: Postsurgical changes of LEFT humeral head. Soft tissues: Unremarkable. IMPRESSION: Chronic obstructive pulmonary disease.
[2022-05-19 02:41] LABS: Basophils # 0.1 K/mm3 (0-0.2); Basophils % 1.1 % (0.1-2.0); Eosinophils # 0.4 K/mm3 (0.0-0.4); Eosinophils % 3.7 % (0.1-12.0); Hematocrit 36.6 % (37.0-47.0); Hemoglobin 11.7 g/dL (12.2-16.2); Lymphocytes # 2.5 K/mm3 (0.7-4.5); Lymphocytes % 21.2 % (10-50); Mean Corpuscular HGB Conc 31.9 g/dL (31.8-35.4); Mean Corpuscular Hemoglobin 29.8 pg (27.0-31.2); Mean Corpuscular Volume 93.3 fl (81-99); Mean Platelet Volume 7.1 fl (7.4-10.4); Monocytes # 0.8 K/mm3 (0.1-1.0); Neutrophils # 7.9 K/mm3 (1.8-7.8); Platelet Count 508 K/mm3 (142-424); Red Blood Count 3.92 M/mm3 (4.20-5.40); Red Cell Distribution Width 15.4 % (11.5-17.5); White Blood Count 11.8 K/mm3 (4.8-10.8)
[2022-05-19 02:45] LABS: Alanine Aminotransferase 16 U/L (12-78); Albumin Level 3.7 g/dl (3.5-5.0); Albumin/Globulin Ratio 1.4 (1.1-1.8); Alkaline Phosphatase 142 U/L (38-126); Anion Gap 17.1 mEq/L (5-15); Aspartate Amino Transferase 36 U/L (14-36); Blood Urea Nitrogen 7 mg/dl (7-17); Calcium 8.5 mg/dl (8.4-10.2); Carbon Dioxide 32 mmol/L (22.0-30.0); Chloride 91 mmol/L (98-107); Creatinine Clearance Estimated 63 mL/min (50-200); Estimated Glomerular Filt Rate 74 ml/min (>60); GFR (African American) 89 ML/MIN (>60); Globulin 2.7 g/dL (1.3-3.2); Glucose 112 mg/dl (74-100); Potassium 4.1 mmoL/L (3.5-5.1); Sodium 136 mmol/L (136-145); Total Protein,Serum 6.4 g/dl (6.3-8.2)
[2022-05-19 02:47] LABS: Bilirubin,Total 0.1 mg/dl (0.2-1.3)
[2022-05-19 02:54] LABS: NT Pro Brain Natriuretic Pep. 114 pg/mL (0-125)
[2022-05-19 03:06] LABS: Troponin I < 0.01 ng/ml (0.00-0.034)
--- NOTE | 2022-05-19 03:08 | PC.NURSE ---
Patient called out stating that she was having difficulty breathing. Patients vital signs are stable. Oxygenation is 98% on room air. Patient states that she needs some antibiotics and something to help her breathe. MD notified. Order entered for solumedrol.
--- NOTE | 2022-05-19 03:25 | HMH.EDSOB ---
Discharge Plan Disposition Patient Disposition: Home, Self-Care Prescriptions Prescriptions: New prednisone [prednisone] 20 mg tablet 20 mg PO BID Qty: 10 0RF levofloxacin 500 mg tablet 500 mg PO DAILY Qty: 7 0RF No Action Asmanex HFA 100 mcg/actuation HFA aerosol inhaler 2 puff inhalation DAILY nicotine 7 mg/24 hr patch 24 hour 1 patch transdermal Q24H Qty: 28 1RF mirtazapine 7.5 mg tablet 7.5 mg PO HS Label Comments: TAKE 1 TABLET BY MOUTH AT BEDTIME FOR SLEEP/APPETITE furosemide 40 mg tablet 40 mg PO BID Qty: 60 5RF spironolactone [Aldactone] 50 mg tablet 50 mg PO BID Qty: 60 5RF clopidogrel 75 mg tablet See Rx Instructions .ROUTE .COMPLEX Qty: 30 0RF Dose Instruction: TAKE 1 TABLET BY MOUTH ONCE DAILY Rx Instructions: TAKE 1 TABLET BY MOUTH ONCE DAILY pantoprazole 40 mg tablet,delayed release (DR/EC) See Rx Instructions .ROUTE .COMPLEX Qty: 30 0RF Dose Instruction: TAKE 1 TABLET BY MOUTH AT BEDTIME Rx Instructions: TAKE 1 TABLET BY MOUTH AT BEDTIME bisoprolol fumarate 5 mg tablet See Rx Instructions .ROUTE .COMPLEX Qty: 30 4RF Dose Instruction: TAKE 1 TABLET BY MOUTH ONCE DAILY Rx Instructions: TAKE 1 TABLET BY MOUTH ONCE DAILY aspirin 81 mg tablet,delayed release (DR/EC) See Rx Instructions .ROUTE .COMPLEX Qty: 30 0RF Dose Instruction: TAKE 1 TABLET BY MOUTH ONCE DAILY Rx Instructions: TAKE 1 TABLET BY MOUTH ONCE DAILY Entresto 24-26 mg tablet See Rx Instructions .ROUTE .COMPLEX Qty: 60 0RF Dose Instruction: TAKE 1 TABLET BY MOUTH TWICE DAILY Rx Instructions: TAKE 1 TABLET BY MOUTH TWICE DAILY gabapentin 600 MG tablet 600 mg PO HS ipratropium-albuterol 3 ML solution for nebulization 3 ml IH Q4HP PRN (Reason: Shortness Of Breath) Label Comments: INHALE THE CONTENTS OF 1 VIAL BY NEBULIZER EVERY 4 HOURS NEEDED FOR BREATHING DIFFICULTY albuterol sulfate 8.5 GM HFA aerosol inhaler 2 puffs IH Q4HP PRN (Reason: Shortness Of Breath) buprenorphine-naloxone 1 EACH tablet, sublingual 2 each SL DAILY duloxetine 60 MG capsule,delayed release(DR/EC) 60 mg PO DAILY umeclidinium-vilanterol 1 EACH blister with device 1 puff IH DAILY nicotine 21 MG/PATCH patch 24 hour 21 mg TD DAILYP PRN (Reason: Nicotine Cravings) 30 Days Qty: 30 0RF rosuvastatin 10 MG tablet 10 mg PO DAILY buspirone 5 MG tablet 5 mg PO TID potassium chloride 20 MEQ tablet extended release 20 meq PO DAILY Qty: 10 0RF Referrals Follow up/Referrals: Rita Carson [Primary Care Provider] - See instructions Clinical Impressions Clinical Impression: Elevated left ventricular end-diastolic pressure (LVEDP), COPD exacerbation, Acute bronchitis Instructions Patient Instructions: DI for Shortness of Breath Discharge ED Provider: Peter Espana Resp/SOB HPI General Chief Complaint: Shortness of Breath/Dyspnea Stated Complaint: SOA Time Seen by Provider: 05/19/22 03:25 Mode of Arrival: Ambulatory Source of Information: Patient Limitations: No Limitations Description of Symptoms (Recalled from ER Triage Doc. by RN): pt states she is sick in her lungs the pt states she feels like she cannot breathe and she is having an axiety attack, pt states she has copd and has no o2 orders pt has a hx of heart cath states no chest pain. History of Present Illness pt with hx of copd and with acute episode - has assoc anxiety w/o chest pain - hx of cad and lvedp elevated and has seen card and pul - been compliant with meds MD Complaint: shortness of breath and cough Onset (ago): hour(s) Severity: moderate Known history of: COPD and congestive heart failure Associated symptoms: denies other symptoms Related Data Home oxygen amount: none Home Medications Medication Instructions Recorded Confirmed albuterol sulfate 90 mcg/actuation 2 puffs inhala
--- NOTE | 2022-05-19 04:22 | PC.NURSE ---
Called and spoke with Pawel at [facility] to request verification of ativan and levaquin.
[2022-05-19 04:32] VITALS: BP 109/70; PULSE 99; RESP 16; TEMP 37.1; O2SAT 98
== END 2022-05-19 04:56 | disposition home or self-care (01) ==
PROVIDERS: Emergency Provider Emergency Medicine; PCP Emergency Medicine
DX: J44.1 Chronic obstructive pulmonary disease with (acute) exacerbation (principal); J20.9 Acute bronchitis, unspecified; I50.1 Left ventricular failure, unspecified; Z79.899 Other long term (current) drug therapy; Z87.891 Personal history of nicotine dependence; F41.9 Anxiety disorder, unspecified; I10 Essential (primary) hypertension; E78.5 Hyperlipidemia, unspecified; I25.10 Atherosclerotic heart disease of native coronary artery without angina pectoris
CPT/HCPCS: 71046; 80053; 83880; 84484; 85025; 93005; 94640; 96374; 99284

== ENCOUNTER 2022-05-22 08:10 | Emergency (ER) | payer MEDICARE, MEDICAID, SELFPAY ==
[2022-05-22] VITALS (9 sets, daily range): BP systolic 102–132; BP diastolic 65–81; PULSE 100–124; RESP 18–20; TEMP 36.5–36.7; O2SAT 95–97; BMI 21.9
--- NOTE | 2022-05-22 08:23 | PC.NURSE ---
DR. DAMIAN AT BEDSIDE FOR EVALUATION
--- NOTE | 2022-05-22 08:30 | CT_ITS ---
PROCEDURE INFORMATION: Exam: CT Abdomen And Pelvis With Contrast Exam date and time: 05/22/2022 9:05 AM Age: 56 years old Clinical indication: Nausea and vomiting; Additional info: Abd pain, diarrhea, vomiting TECHNIQUE: Imaging protocol: Computed tomography of the abdomen and pelvis with contrast. Radiation optimization: All CT scans at this facility use at least one of these dose optimization techniques: automated exposure control; mA and/or kV adjustment per patient size (includes targeted exams where dose is matched to clinical indication); or iterative reconstruction. Contrast material: ISOVUE; Contrast volume: 75 ml; Contrast route: IV; COMPARISON: CR XR CHEST 2V 05/19/2022 2:18 AM FINDINGS: Lungs: Emphysematous changes in the lungs. Calcified granuloma in the left lower lobe. Liver: Normal. No mass. Gallbladder and bile ducts: Normal. No calcified stones. No ductal dilation. Pancreas: Normal. No ductal dilation. Spleen: Calcified splenic granulomas. Adrenal glands: Normal. No mass. Kidneys and ureters: Normal. No hydronephrosis. Stomach and bowel: Unremarkable. No obstruction. No mucosal thickening. Appendix: No evidence of appendicitis. Intraperitoneal space: Unremarkable. No free air. No significant fluid collection. Vasculature: Heavy burden of atherosclerotic plaque in the abdominal aorta and branch vessels. No aneurysm. Lymph nodes: Unremarkable. No enlarged lymph nodes. Urinary bladder: Unremarkable as visualized. Reproductive: Unremarkable as visualized. Bones/joints: Unremarkable. No acute fracture. Soft tissues: Unremarkable. IMPRESSION: No acute findings.
--- NOTE | 2022-05-22 08:42 | PC.NURSE ---
PILLOW AND BLANKET PROVIDED FOR PT. CALL LIGHT WITHIN REACH. NO FURTHER NEEDS VOICED
[2022-05-22 08:46] LABS: Basophils # 0.1 K/mm3 (0-0.2); Basophils % 0.9 % (0.1-2.0); Eosinophils # 0.1 K/mm3 (0.0-0.4); Eosinophils % 0.6 % (0.1-12.0); Hemoglobin 13.1 g/dL (12.2-16.2); Lymphocytes % 16.5 % (10-50); Mean Corpuscular HGB Conc 31.2 g/dL (31.8-35.4); Mean Corpuscular Hemoglobin 28.9 pg (27.0-31.2); Mean Corpuscular Volume 92.6 fl (81-99); Mean Platelet Volume 6.9 fl (7.4-10.4); Monocytes # 0.8 K/mm3 (0.1-1.0); Monocytes % 6.9 % (1.7-9.3); Neutrophils % 75.1 % (37.0-80.0); Platelet Count 536 K/mm3 (142-424); Red Blood Count 4.54 M/mm3 (4.20-5.40); Red Cell Distribution Width 15.4 % (11.5-17.5)
--- NOTE | 2022-05-22 08:48 | PC.NURSE ---
pt is lying in bed, pt wanted her bed pulled out a little cause she said she keeps getting her fingers stuck in there, moved the pts bed out from the wall and locked it back.
[2022-05-22 08:49] LABS: Chloride 83 mmol/L (98-107)
[2022-05-22 08:50] LABS: Sodium 129 mmol/L (136-145)
[2022-05-22 08:52] LABS: Blood Urea Nitrogen 8 mg/dl (7-17); Creatinine Clearance Estimated 49 mL/min (50-200); Estimated Glomerular Filt Rate 57 ml/min (>60); GFR (African American) 69 ML/MIN (>60)
[2022-05-22 08:53] LABS: Alanine Aminotransferase 16 U/L (12-78); Albumin Level 4.2 g/dl (3.5-5.0); Albumin/Globulin Ratio 1.6 (1.1-1.8); Alkaline Phosphatase 112 U/L (38-126); Aspartate Amino Transferase 30 U/L (14-36); Calcium 8.8 mg/dl (8.4-10.2); Carbon Dioxide 33 mmol/L (22.0-30.0); Globulin 2.7 g/dL (1.3-3.2); Glucose 129 mg/dl (74-100); Magnesium 1.3 mg/dl (1.6-2.3); Total Protein,Serum 6.9 g/dl (6.3-8.2)
[2022-05-22 08:56] LABS: Bilirubin,Total 0.1 mg/dl (0.2-1.3)
--- NOTE | 2022-05-22 09:01 | PC.NURSE ---
CRITICAL K+ 3.0 RECEIVED FROM [facility] IN LAB. PT NAME AND R/V. DR. DAMIAN NOTIFIED
--- NOTE | 2022-05-22 09:03 | HMH.EDNVD ---
Discharge Plan Disposition Patient Disposition: Home, Self-Care Condition: Good Prescriptions Prescriptions: New ondansetron 4 mg tablet,disintegrating 4 mg PO DAILY PRN (Reason: nausea and vomiting) 5 Days Qty: 20 0RF No Action Asmanex HFA 100 mcg/actuation HFA aerosol inhaler 2 puff inhalation DAILY nicotine 7 mg/24 hr patch 24 hour 1 patch transdermal Q24H Qty: 28 1RF mirtazapine 7.5 mg tablet 7.5 mg PO HS Label Comments: TAKE 1 TABLET BY MOUTH AT BEDTIME FOR SLEEP/APPETITE furosemide 40 mg tablet 40 mg PO BID Qty: 60 5RF spironolactone [Aldactone] 50 mg tablet 50 mg PO BID Qty: 60 5RF clopidogrel 75 mg tablet See Rx Instructions .ROUTE .COMPLEX Qty: 30 0RF Dose Instruction: TAKE 1 TABLET BY MOUTH ONCE DAILY Rx Instructions: TAKE 1 TABLET BY MOUTH ONCE DAILY pantoprazole 40 mg tablet,delayed release (DR/EC) See Rx Instructions .ROUTE .COMPLEX Qty: 30 0RF Dose Instruction: TAKE 1 TABLET BY MOUTH AT BEDTIME Rx Instructions: TAKE 1 TABLET BY MOUTH AT BEDTIME bisoprolol fumarate 5 mg tablet See Rx Instructions .ROUTE .COMPLEX Qty: 30 4RF Dose Instruction: TAKE 1 TABLET BY MOUTH ONCE DAILY Rx Instructions: TAKE 1 TABLET BY MOUTH ONCE DAILY aspirin 81 mg tablet,delayed release (DR/EC) See Rx Instructions .ROUTE .COMPLEX Qty: 30 0RF Dose Instruction: TAKE 1 TABLET BY MOUTH ONCE DAILY Rx Instructions: TAKE 1 TABLET BY MOUTH ONCE DAILY Entresto 24-26 mg tablet See Rx Instructions .ROUTE .COMPLEX Qty: 60 0RF Dose Instruction: TAKE 1 TABLET BY MOUTH TWICE DAILY Rx Instructions: TAKE 1 TABLET BY MOUTH TWICE DAILY gabapentin 600 MG tablet 600 mg PO HS ipratropium-albuterol 3 ML solution for nebulization 3 ml IH Q4HP PRN (Reason: Shortness Of Breath) Label Comments: INHALE THE CONTENTS OF 1 VIAL BY NEBULIZER EVERY 4 HOURS NEEDED FOR BREATHING DIFFICULTY albuterol sulfate 8.5 GM HFA aerosol inhaler 2 puffs IH Q4HP PRN (Reason: Shortness Of Breath) buprenorphine-naloxone 1 EACH tablet, sublingual 2 each SL DAILY duloxetine 60 MG capsule,delayed release(DR/EC) 60 mg PO DAILY umeclidinium-vilanterol 1 EACH blister with device 1 puff IH DAILY nicotine 21 MG/PATCH patch 24 hour 21 mg TD DAILYP PRN (Reason: Nicotine Cravings) 30 Days Qty: 30 0RF rosuvastatin 10 MG tablet 10 mg PO DAILY buspirone 5 MG tablet 5 mg PO TID potassium chloride 20 MEQ tablet extended release 20 meq PO DAILY Qty: 10 0RF prednisone [prednisone] 20 mg tablet 20 mg PO BID Qty: 10 0RF levofloxacin 500 mg tablet 500 mg PO DAILY Qty: 7 0RF Referrals Follow up/Referrals: Rita Carson [Primary Care Provider] - See instructions Activity Restrictions/Add. Instructions Additional Instructions/Restrictions: Please follow-up with your primary care physician in the next 1 to 2 days for repeat CBC and CMP to closely monitor your electrolytes. Please continue to drink plenty of water. Please utilize the Zofran as needed to help with nausea and vomiting. Please return if unable to eat and drink, worsening abdominal pain or any other concerns. Clinical Impressions Clinical Impression: Hyponatremia, Acute hypokalemia, Gastroenteritis and colitis, viral Instructions Patient Instructions: DI for Viral Gastroenteritis -- Adult, Nausea and Vomiting-Adult Print Language Print Language: Faroese Discharge ED Provider: Marina Cohen Nausea/Vomiting/Diarrhea HPI General Chief complaint: Nausea/Vomiting/Diarrhea Stated complaint: nausea, vomiting,weak Time Seen by Provider: 05/22/22 08:45 Mode of Arrival: Wheelchair Limitations: No Limitations Description of Symptoms (Recalled from ER Triage Doc. by RN): PT REPORTS LEG JERKING FOR A COUPLE DAYS N/V/D X 3 DAYS. DIFFICULTY EMPTYING BLADDER History of Present Illness HPI Narrative:
--- NOTE | 2022-05-22 09:07 | PC.NURSE ---
pt gone to rad
--- NOTE | 2022-05-22 09:08 | PC.NURSE ---
PT TO CT AT THIS TIME
--- NOTE | 2022-05-22 09:16 | PC.NURSE ---
PT RETURNED FROM CT, ATTEMPTING TO PROVIDE UA
--- NOTE | 2022-05-22 09:23 | PC.NURSE ---
UNABLE TO PROVIDE UA
--- NOTE | 2022-05-22 09:32 | PC.NURSE ---
pt back from rad, took pt to restroom pt had no output will try again later
--- NOTE | 2022-05-22 10:02 | PC.NURSE ---
ROUNDED ON PT, REMAINS UNABLE TO VOID. NO NEEDS AT THIS TIME
--- NOTE | 2022-05-22 10:21 | PC.NURSE ---
UA COLLECTED AND SENT TO LAB
--- NOTE | 2022-05-22 10:23 | PC.NURSE ---
Urine collected by Satya and sent to lab by Scott Quispe
[2022-05-22 10:26] LABS: Microscopic, Urine URINE MICROSCOPIC (MICROSCOPIC)
[2022-05-22 10:41] LABS: Appearance,Urine CLEAR (Clear); Bilirubin,Urine Negative (Negative); Blood, Urine Negative (Negative); Color,Urine YELLOW (Yellow); Glucose,Urine (UA) Negative (Negative); Ketones,Urine Negative (Negative); Leukocyte Esterase,Urine Negative (Negative); Nitrate,Urine Negative (Negative); PH,Urine 6.5 (5.0-8.5); Protein,Urine Negative (Negative); Specific Gravity, Urine <= 1.005 (1.005-1.030); Urobilinogen,Urine 0.2 EU/dl (0.2)
--- NOTE | 2022-05-22 10:52 | PC.NURSE ---
DR. DAMIAN AT BEDSIDE TO DISCUSS POC AND RESULTS WITH PT
[2022-05-22 11:20] LABS: Bacteria,Urine Trace /lpf
== END 2022-05-22 11:10 | disposition home or self-care (01) ==
PROVIDERS: Emergency Provider Student in an Organized Health Care Education/Training Program; PCP Emergency Medicine
DX: A08.4 Viral intestinal infection, unspecified (principal); E87.6 Hypokalemia; E87.1 Hypo-osmolality and hyponatremia; Z79.51 Long term (current) use of inhaled steroids; Z79.899 Other long term (current) drug therapy; J44.9 Chronic obstructive pulmonary disease, unspecified; I25.2 Old myocardial infarction; I50.9 Heart failure, unspecified; Z87.891 Personal history of nicotine dependence
CPT/HCPCS: 74177; 80053; 81001; 83735; 85025; 87086; 96365; 96375; 99284; J2405; Q9967

== ENCOUNTER 2023-04-13 17:19 | Observation (INO) | payer MEDICARE, MEDICAID, SELFPAY ==
[2023-04-13] VITALS (13 sets, daily range): BP systolic 126–180; BP diastolic 76–98; PULSE 71–110; RESP 18–24; TEMP 36.6–36.8; O2SAT 94–97; BMI 22.4; BMI 22.3
--- NOTE | 2023-04-13 17:18 | ECG_ITS ---
APPROVED REPORT Exam: Resting ECG HR:102 bpm ECG Measurements Heart Rate 102 AXES AR 125 P 81 QRSd 68 QRS 73 QT 335 T 72 QTc 394 Conclusion SINUS TACHYCARDIA POSSIBLE RIGHT ATRIAL ENLARGEMENT [0.25mV P-WAVE] ABNORMAL RHYTHM ECG UNCONFIRMED REPORT Electronically signed by : Jimbo Esparza MD 04/14/2023 15:58:39
--- NOTE | 2023-04-13 17:33 | XR_ITS ---
PROCEDURE INFORMATION: Exam: XR Chest Exam date and time: 04/13/2023 5:58 PM Age: 57 years old Clinical indication: Pain; Chest pressure; Additional info: Chest pain TECHNIQUE: Imaging protocol: Radiologic exam of the chest. Views: 1 view. COMPARISON: CR XR CHEST 2V 05/19/2022 2:18 AM FINDINGS: Lungs: Unremarkable. No consolidation. Pleural spaces: Unremarkable. No pleural effusion. No pneumothorax. Heart/Mediastinum: Unremarkable. No cardiomegaly. Bones/joints: Unremarkable. IMPRESSION: No acute findings.
--- NOTE | 2023-04-13 17:38 | HMH.EDGENADL ---
Discharge Plan Disposition Patient Disposition: Admitted Condition: Good Clinical Impressions Clinical Impression: Acute non-ST elevation myocardial infarction (NSTEMI) Discharge ED Provider: Sarah Wakefield General Adult HPI General Chief complaint: Recheck/Abnormal Lab/Rx Stated complaint: Chest pain Time Seen by Provider: 04/13/23 17:25 Mode of Arrival: Wheelchair Source of Information: Patient Limitations: No Limitations Description of Symptoms (Recalled from ER Triage Doc. by RN): Patient states she was discharged from [facility] this morning for elevated troponin. States that her son was upset related to her troponin continuing to elevate so he told here to come here for evaluation. Patient denies chest pain at this time. History of Present Illness HPI narrative: This patient is a 57-year-old female with a history of hypertension, CAD, COPD, CHF, and extensive smoking history presenting to the emergency department for evaluation with concern that she had elevated troponins at [facility]. She states that she was evaluated there yesterday after having outpatient labs that showed elevated troponin. She was admitted to the hospital overnight, and states that her troponin went from 62-58. She states that they continue to check troponins, but it never got below 58. Given this, her son was upset that her troponin continues to be elevated so he told her to come here for reassessment. She denies any concerns, such as chest pain, shortness of breath, or other issues at this time. She states she has felt tired lately and had chest pain on the left side several days ago, however it resolved since then. She denies any other concerns. Related Data Home Medications Medication Instructions Recorded Confirmed albuterol sulfate 90 mcg/actuation 2 puffs inhalation Q4HP PRN 09/23/21 04/13/23 aerosol inhaler Shortness Of Breath buprenorphine 8 mg-naloxone 2 mg 2 each sublingual DAILY WITHDRAWAL 09/23/21 04/13/23 sublingual tablet gabapentin 600 mg tablet 600 mg PO HS Pain 09/23/21 04/13/23 buspirone 5 mg tablet 5 mg PO TID Anxiety 12/17/21 04/13/23 rosuvastatin 10 mg tablet 10 mg PO DAILY Cholesterol 12/17/21 04/13/23 mirtazapine 7.5 mg tablet 7.5 mg PO HS sleep 01/18/22 04/13/23 aspirin 81 mg tablet,delayed See Rx Instructions .Route 04/13/23 04/13/23 release .COMPLEX Heart Disease clopidogrel 75 mg tablet See Rx Instructions .Route 04/13/23 04/13/23 .COMPLEX Heart Disease furosemide 40 mg tablet See Rx Instructions .Route 04/13/23 04/13/23 .COMPLEX Fluid pantoprazole 40 mg tablet,delayed See Rx Instructions .Route 04/13/23 04/13/23 release .COMPLEX gerd potassium chloride 20 mEq 10 meq PO DAILY Supplement 04/13/23 04/13/23 tablet,extended release prednisone 20 mg tablet 20 mg PO BID inflammation 04/13/23 04/13/23 spironolactone 50 mg tablet See Rx Instructions .Route 04/13/23 04/13/23 .COMPLEX Fluid Allergies Allergy/AdvReac Type Severity Reaction Status Date / Time No Known Allergies Allergy Verified 05/11/22 14:37 [facility] Disclaimer: The information contained in this section may have been updated after the patient was seen, as this information can be updated by other users. Medical History COPD (chronic obstructive pulmonary disease) COPD (chronic obstructive pulmonary disease) case management patient Dyspnea on exertion Nicotine dependence Pulmonary emphysema Screening for lung cancer Stopped smoking with greater than 30 pack year history Surgical History History of hand surgery History of surgery on arm Family History (Updated 04/13/23 @ 22:57 by Clarissa Henderson RN) Other Family history of hypertension Family history of myocardial infarction No significant family history Social History (Updated 04/13/23 @ 22:57 by Clarissa Henderson RN) Smoking Status: Current every day smoker tobacco type: ciga
[2023-04-13 17:43] LABS: Basophils % 0.2 % (0.1-2.0); Eosinophils % 0.1 % (0.1-12.0); Hematocrit 48.8 % (37.0-47.0); Hemoglobin 15.3 g/dL (12.2-16.2); Lymphocytes % 5.5 % (10-50); Mean Corpuscular HGB Conc 31.2 g/dL (31.8-35.4); Mean Corpuscular Hemoglobin 29.9 pg (27.0-31.2); Mean Corpuscular Volume 95.8 fl (81-99); Mean Platelet Volume 7.5 fl (7.4-10.4); Monocytes # 0.6 K/mm3 (0.1-1.0); Monocytes % 3.2 % (1.7-9.3); Neutrophils # 16.2 K/mm3 (1.8-7.8); Platelet Count 394 K/mm3 (142-424); Red Blood Count 5.09 M/mm3 (4.20-5.40); Red Cell Distribution Width 15.6 % (11.5-17.5); White Blood Count 17.8 K/mm3 (4.8-10.8)
[2023-04-13 17:48] LABS: MANUAL DIFFERENTIAL MANUAL DIFFERENTIAL (MANUAL DIFF)
[2023-04-13 17:50] LABS: Chloride 97 mmol/L (98-107); Potassium 4.3 mmoL/L (3.5-5.1); Sodium 133 mmol/L (136-145)
[2023-04-13 17:52] LABS: Blood Urea Nitrogen 17 mg/dl (7-17); Creatinine Clearance Estimated 55 mL/min (50-200); Estimated Glomerular Filt Rate 64 ml/min (>60); GFR (African American) 78 ML/MIN (>60)
[2023-04-13 17:53] LABS: Alanine Aminotransferase 39 U/L (12-78); Albumin Level 3.9 g/dl (3.5-5.0); Albumin/Globulin Ratio 1.6 (1.1-1.8); Alkaline Phosphatase 79 U/L (38-126); Anion Gap 11.3 mEq/L (5-15); Aspartate Amino Transferase 34 U/L (14-36); Bilirubin,Total 0.4 mg/dl (0.2-1.3); Calcium 9.3 mg/dl (8.4-10.2); Carbon Dioxide 29 mmol/L (22.0-30.0); Globulin 2.5 g/dL (1.3-3.2); Glucose 163 mg/dl (74-100); Total Protein,Serum 6.4 g/dl (6.3-8.2)
[2023-04-13 18:00] LABS: Lymphocytes % 3 % (10-50); Monocytes % 1 % (2-9); Neutrophils % 96 % (42-76); Platelet Estimate Normal; RBC Morphology Normal; Total Cells Counted 100
[2023-04-13 18:14] LABS: Troponin I 0.51 ng/ml (0.00-0.034)
[2023-04-13 18:34] LABS: Procalcitonin 0.049 ng/mL (0.0-2.0)
[2023-04-13 19:07] LABS: C-Reactive Protein 3.6 mg/L (0-4)
[2023-04-13 20:34] LABS: Troponin I 0.03 ng/ml (0.00-0.034)
[2023-04-13 20:40] LABS: Erythrocyte Sedimentation Rate 8 mm/hr (0-30)
[2023-04-13 21:10] LABS: Troponin I 0.03 ng/ml (0.00-0.034)
--- NOTE | 2023-04-13 21:43 | PC.NURSE ---
OBSERVATION ADMISSION TO SERVICE OF HOSPITALIST WITH DX OF ELEVATED TROP.
--- NOTE | 2023-04-13 21:58 | EXP.HP ---
History of Present Illness *Admission Date: 04/13/23 *Reason for visit:: NSTEMI *History of present illness: This is a 57-year-old female with PMHx of hypertension, CAD, COPD, CHF, and extensive smoking history presented to the emergency department for evaluation of elevated troponins at [facility]. patient went to the hospital after been evaluated yesterday. She was admitted to the hospital overnight, and states that her troponin went from 62-58 (high sensitivity). Patient decided to come here for reassessment. She denies any concerns, such as chest pain, shortness of breath, or other issues at this time. She states she has felt tired lately and had chest pain on the left side several days ago, however it resolved since then. Admitted for further observation and management. [facility] Disclaimer: The information contained in this section may have been updated after the patient was seen, as this information can be updated by other users. Medical History COPD (chronic obstructive pulmonary disease) COPD (chronic obstructive pulmonary disease) case management patient Dyspnea on exertion Nicotine dependence Pulmonary emphysema Screening for lung cancer Stopped smoking with greater than 30 pack year history Surgical History History of hand surgery History of surgery on arm Family History (Updated 04/13/23 @ 22:57 by Clarissa Henderson RN) Other Family history of hypertension Family history of myocardial infarction No significant family history Social History (Updated 04/13/23 @ 22:57 by Clarissa Henderson RN) Smoking Status: Current every day smoker tobacco type: cigarettes packs per day: 1 smoking status stop date: 04/08/2022 alcohol intake: never substance use type: denies use current occupational status: disabled and other Travel in the last 8 weeks: None household members: family housing: apartment caffeine: No Review of Systems Review of Systems Review of systems:: pertinent systems reviewed and negative unless documented below Meds Home Medications and Allergies Home Medications Medication Instructions Recorded Confirmed Type albuterol sulfate 90 mcg/actuation 2 puffs inhalation Q4HP PRN 09/23/21 04/13/23 History aerosol inhaler Shortness Of Breath buprenorphine 8 mg-naloxone 2 mg 2 each sublingual DAILY WITHDRAWAL 09/23/21 04/13/23 History sublingual tablet gabapentin 600 mg tablet 600 mg PO HS Pain 09/23/21 04/13/23 History buspirone 5 mg tablet 5 mg PO TID Anxiety 12/17/21 04/13/23 History rosuvastatin 10 mg tablet 10 mg PO DAILY Cholesterol 12/17/21 04/13/23 History mirtazapine 7.5 mg tablet 7.5 mg PO HS sleep 01/18/22 04/13/23 History aspirin 81 mg tablet,delayed See Rx Instructions .Route 04/13/23 04/13/23 History release .COMPLEX Heart Disease clopidogrel 75 mg tablet See Rx Instructions .Route 04/13/23 04/13/23 History .COMPLEX Heart Disease furosemide 40 mg tablet See Rx Instructions .Route 04/13/23 04/13/23 History .COMPLEX Fluid pantoprazole 40 mg tablet,delayed See Rx Instructions .Route 04/13/23 04/13/23 History release .COMPLEX gerd potassium chloride 20 mEq 10 meq PO DAILY Supplement 04/13/23 04/13/23 History tablet,extended release prednisone 20 mg tablet 20 mg PO BID inflammation 04/13/23 04/13/23 History spironolactone 50 mg tablet See Rx Instructions .Route 04/13/23 04/13/23 History .COMPLEX Fluid New Prescriptions to Start Prescriptions: Allergies Allergy/AdvReac Type Severity Reaction Status Date / Time No Known Allergies Allergy Verified 05/11/22 14:37 Exam Data for Last 24 hours Vital signs and Labs for Last 24 Hours: Temp Pulse Resp BP Pulse Ox O2 Del Method 98.2 F 74 19 138/86 94 L Room Air 04/13/23 17:19 04/13/23 20:30 04/13/23 20:30 04/13/23 20:30 04/13/23 20:30 04/13/23 17:19 Laboratory Results - last 24 hr 04/13/23 17:35:
--- NOTE | 2023-04-13 22:31 | PC.NURSE ---
pt to floor via wheelchair at 22:29.
[2023-04-14] VITALS (9 sets, daily range): BP systolic 98–159; BP diastolic 62–89; PULSE 70–100; RESP 18–19; TEMP 36.8–37.2; O2SAT 93–99
[2023-04-14 00:08] LABS: Troponin I 0.04 ng/ml (0.00-0.034)
--- NOTE | 2023-04-14 01:38 | PC.NURSE ---
Patient unable to remember what medications she takes as well as the milligrams of medications
--- NOTE | 2023-04-14 05:13 | PC.NURSE ---
No complaints of chest pain, VS stable and patient on room air while awake. Patient states she wears 2LNC at home while sleeping, 2LNC provided while patient slept. No other changes noted.
[2023-04-14 06:49] LABS: Basophils # 0.1 K/mm3 (0-0.2); Basophils % 0.3 % (0.1-2.0); Eosinophils # 0.1 K/mm3 (0.0-0.4); Eosinophils % 0.5 % (0.1-12.0); Hematocrit 47.2 % (37.0-47.0); Hemoglobin 14.7 g/dL (12.2-16.2); Lymphocytes # 3.8 K/mm3 (0.7-4.5); Lymphocytes % 20.8 % (10-50); Mean Corpuscular HGB Conc 31.2 g/dL (31.8-35.4); Mean Corpuscular Hemoglobin 29.9 pg (27.0-31.2); Mean Corpuscular Volume 95.8 fl (81-99); Mean Platelet Volume 7.3 fl (7.4-10.4); Monocytes # 0.7 K/mm3 (0.1-1.0); Monocytes % 4.1 % (1.7-9.3); Neutrophils # 13.5 K/mm3 (1.8-7.8); Neutrophils % 74.3 % (37.0-80.0); Platelet Count 354 K/mm3 (142-424); Red Blood Count 4.93 M/mm3 (4.20-5.40); Red Cell Distribution Width 15.6 % (11.5-17.5); White Blood Count 18.2 K/mm3 (4.8-10.8)
[2023-04-14 06:55] LABS: MANUAL DIFFERENTIAL MANUAL DIFFERENTIAL (MANUAL DIFF)
[2023-04-14 06:58] LABS: INR 0.93 (0.9-1.1); Prothrombin Time 10.1 seconds (10.1-12.5)
[2023-04-14 07:01] LABS: Alanine Aminotransferase 28 U/L (12-78); Albumin Level 3.4 g/dl (3.5-5.0); Albumin/Globulin Ratio 1.4 (1.1-1.8); Alkaline Phosphatase 69 U/L (38-126); Anion Gap 6.4 mEq/L (5-15); Aspartate Amino Transferase 25 U/L (14-36); Bilirubin,Total 0.2 mg/dl (0.2-1.3); Blood Urea Nitrogen 20 mg/dl (7-17); Calcium 8.8 mg/dl (8.4-10.2); Carbon Dioxide 38 mmol/L (22.0-30.0); Chloride 96 mmol/L (98-107); Cholesterol 135 mg/dl (140-200); Creatinine Clearance Estimated 62 mL/min (50-200); Estimated Glomerular Filt Rate 73 ml/min (>60); GFR (African American) 89 ML/MIN (>60); Globulin 2.4 g/dL (1.3-3.2); Glucose 80 mg/dl (74-100); HDL Cholesterol 69 mg/dl (40-60); Magnesium 2.3 mg/dl (1.6-2.3); Phosphorous 3.8 mg/dl (2.5-4.5); Potassium 4.4 mmoL/L (3.5-5.1); Sodium 136 mmol/L (136-145); Total Protein,Serum 5.8 g/dl (6.3-8.2); Triglycerides 147 mg/dl (30-150); VLDL Cholesterol 29 mg/dL (0-40)
[2023-04-14 07:18] LABS: Direct LDL Cholesterol 53.01 mg/dL (100-129)
[2023-04-14 07:51] LABS: Lymphocytes % 23 % (10-50); Monocytes % 6 % (2-9); Neutrophils % 71 % (42-76); Platelet Estimate Normal; RBC Morphology Normal; Total Cells Counted 100
--- NOTE | 2023-04-14 08:47 | CA_ITS ---
APPROVED REPORT EXAM: Comprehensive 2D, Doppler, and color-flow Echocardiogram Nitric Acid Plant Operator: Yandy Fischer RVT Ht: 4 ft 11 in Wt: 113lbs BSA: 1.45 BP: 138/86 mmHg Indications: ELEVATED TROP,CAD,HX CHF,CM,COPD,SMOKER,HTN,HLD TDS-LIMITED WINDOWS R/T PT BODY HABITUS AND OVERLAYING LUNG 2D Dimensions LVOT 1.92 cm (M/F) 1.5-2.5 LA Volume 21.90 mL LA Volume Index 15.10 mL/m2 (M/F) 16-34 M-Mode Dimensions RVDd 2.50 cm (0.9-2.6) LA Diam 2.64 cm (1.9-4.0) LVDd 4.36 cm (3.5-5.7) Ao Diam 1.98 cm (2.0-3.7) LVDs 2.82 cm (3.5-5.7) IVSd 0.29 cm (0.6-1.1) PWd 0.29 cm (0.6-1.1) EF (Teich) 64.90% FS 35.30% EDV (Teich) 85.80 mL TAPSE 2.07 (<1.7) ESV (Teich) 30.10 mL LV Diastology E Decel Time 150.00 (160-240 msec) E/A Ratio 1.1 MED E' 10.00 (< 7 cm/sec) E'/MED E' Ratio 8.76 (>14) LAT E' 11.50 (<10 cm/sec) E/LAT E' Ratio 7.62 (>14) Aortic Valve AO Peak GR. 7.60 mmHg Mitral Valve MV E Max Hossein. 88.00 (40-130 cm/s) MV A Velocity 81.00 (40-130 cm/s) E/A Ratio 1.09 MV Decel. Time 150.00 (160-240 ms) MV PHT 44.00 ms Pulmonary Valve PV Peak Velocity 79.00 (50-150 cm/s) Tricuspid Valve TR P. Velocity 245.00 cm/s RAP Estimate 10.00 mmHg RVSP 33.90 mmHg Left Ventricle The left ventricle is normal size. The left ventricular systolic function is normal. The left ventricular ejection fraction is within the normal range. There is normal left ventricular wall thickness. There is normal LV segmental wall motion. The left ventricular diastolic function is normal. LVEF is 55%. Right Ventricle The right ventricle is normal size. The right ventricular systolic function is normal. Atria The left atrium size is normal. The right atrium size is normal. There is no Doppler evidence of interatrial shunt. Lipomatous hypertrophy of the interatrial septum is present. Aortic Valve The aortic valve is mildly thickened. There is no aortic valvular stenosis. Trace aortic regurgitation. Mitral Valve The mitral valve appears mildly thickened. No evidence of mitral valve stenosis. Trace mitral regurgitation. Tricuspid Valve The tricuspid valve leaflets are thin and pliable. Mild tricuspid regurgitation. RVSP is 25 mmHg. Trace tricuspid regurgitation. RVSP is 20-25 mmHg. Pulmonic Valve The pulmonary valve is normal in structure. Trace pulmonic regurgitation. Great Vessels The aortic root is normal in size. The ascending aorta is not well visualized. IVC is normal in size and collapses >50% with inspiration. Pericardium There is no pericardial effusion. Other Information Study Quality: Technically Difficult Conclusion This was a technically difficult study in the setting of poor acoustic windows. Normal biventricular systolic function. No evidence of wall motion abnormalities. No significant valvular stenosis or regurgitation. Lipomatous hypertrophy of the interatrial septum. Electronically signed by : Anneliese Boyd, 04/18/2023 20:56:31
--- NOTE | 2023-04-14 09:56 | EXP.CARD.CON ---
History of Present Illness History of Present Illness Consult date: 04/14/23 Requesting physician: Rodrigo Kearney Consult reason: shortness of breath Chief complaint: Shortness of air and elevated troponin History of present illness: 57-year-old female with a history of hypertension, CAD, COPD, HFimpEF, and extensive smoking history presenting to the emergency department for evaluation with concern that she had elevated troponins at [facility]. She states that she was evaluated there yesterday after having outpatient labs that showed elevated troponin. She was admitted to the hospital overnight, and states that her troponin went from 62-58. She states that they continue to check troponins, but it never got below 58. Given this, her son was upset that her troponin continues to be elevated so he told her to come here for reassessment. She denies any concerns, such as chest pain, shortness of breath, or other issues at this time on presentation. she states she has felt tired lately and had chest pain on the left side several days ago, however it resolved since then. EKG upon presentation to ER showed sinus tachycardia with a rate of 102, possible right atrial enlargement. No acute ischemic changes were noted. Labs upon presentation to ER as follow: WBC 17.8, hemoglobin 15.3, sodium 133, potassium 4.3, creatinine 0.9, troponin 0.51 trending down to 0.04. On evaluation this morning patient denies complaints but is obviously tachypneic and complaining of shortness of air at rest. Denies chest pain. [facility] Disclaimer: The information contained in this section may have been updated after the patient was seen, as this information can be updated by other users. Medical History COPD (chronic obstructive pulmonary disease) COPD (chronic obstructive pulmonary disease) case management patient Dyspnea on exertion Nicotine dependence Pulmonary emphysema Screening for lung cancer Stopped smoking with greater than 30 pack year history Surgical History History of hand surgery History of surgery on arm Family History (Updated 04/13/23 @ 22:57 by Clarissa Henderson RN) Other Family history of hypertension Family history of myocardial infarction No significant family history Social History (Updated 04/13/23 @ 22:57 by Clarissa Henderson RN) Smoking Status: Current every day smoker tobacco type: cigarettes packs per day: 1 smoking status stop date: 04/08/2022 alcohol intake: never substance use type: denies use current occupational status: disabled and other Travel in the last 8 weeks: None household members: family housing: apartment caffeine: No Review of Systems Review of Systems Review of systems:: pertinent systems reviewed and negative unless documented below *Cardiovascular Cardiovascular: Reports dyspnea on exertion *Respiratory Respiratory: Reports dyspnea on exertion Exam Data for Last 24 hours Vital signs and Labs for Last 24 Hours: Temp Pulse Resp BP Pulse Ox O2 Del Method O2 Flow Rate 98.4 F 97 H 18 159/89 H 93 L Room Air 2 04/14/23 07:46 04/14/23 07:46 04/14/23 07:46 04/14/23 07:46 04/14/23 08:48 04/14/23 08:48 04/14/23 07:46 Laboratory Results - last 24 hr 04/13/23 17:35: WBC 17.8 H, RBC 5.09, Hgb 15.3, Hct 48.8 H, MCV 95.8, MCH 29.9, MCHC 31.2 L, RDW 15.6, Plt Count 394, MPV 7.5, Neut % (Auto) 91.0 H, Lymph % (Auto) 5.5 L, [place] % (Auto) 3.2, Eos % (Auto) 0.1, Baso % (Auto) 0.2, Neut # (Auto) 16.2 H, Lymph # (Auto) 1.0, [place] # (Auto) 0.6, Eos # (Auto) 0.0, Baso # (Auto) 0.0, Total Counted 100, Neutrophils % (Manual) 96 H, Lymphocytes % (Manual) 3 L, Monocytes % (Manual) 1 L, Platelet Estimate Normal, RBC Morphology Normal, ESR 8, Sodium 133 L, Potassium 4.3, Chloride 97 L, Carbon Dioxide 29, Anion Gap 11.3, BUN 17, Creatinine 0.90, Estimated Creat Clear 55, Estimated GFR 64, Est GFR ( Amer) 78, Glucose 163 H, Jaciel
--- NOTE | 2023-04-14 10:09 | PC.NURSE ---
pt refuses to take morning medications with water. contacted Jairo Womack APRN in cardiology for cardiology clearance for diet order. dr kilgore made aware that from a cardiology standpoint pt is able to have diet ordered.
--- NOTE | 2023-04-14 14:33 | EXP.PN ---
Subjective *Date: 04/14/23 *Time: 14:33 Interval history: Patient is seen and examined today. I am accompanied by nursing staff. Nursing staff report that she remains afebrile with stable vital signs and saturating appropriately on room air. She has been evaluated by cardiology. The patient reports improved dyspnea. She is tolerating her therapy with no adverse events. Exam Data for Last 24 hours Vital signs and Labs for Last 24 Hours: Temp Pulse Resp BP Pulse Ox O2 Del Method O2 Flow Rate 98.4 F 80 18 159/89 H 93 L Room Air 2 04/14/23 07:46 04/14/23 12:00 04/14/23 07:46 04/14/23 07:46 04/14/23 08:48 04/14/23 13:00 04/14/23 07:46 Laboratory Results - last 24 hr 04/13/23 17:35: WBC 17.8 H, RBC 5.09, Hgb 15.3, Hct 48.8 H, MCV 95.8, MCH 29.9, MCHC 31.2 L, RDW 15.6, Plt Count 394, MPV 7.5, Neut % (Auto) 91.0 H, Lymph % (Auto) 5.5 L, [place] % (Auto) 3.2, Eos % (Auto) 0.1, Baso % (Auto) 0.2, Neut # (Auto) 16.2 H, Lymph # (Auto) 1.0, [place] # (Auto) 0.6, Eos # (Auto) 0.0, Baso # (Auto) 0.0, Total Counted 100, Neutrophils % (Manual) 96 H, Lymphocytes % (Manual) 3 L, Monocytes % (Manual) 1 L, Platelet Estimate Normal, RBC Morphology Normal, ESR 8, Sodium 133 L, Potassium 4.3, Chloride 97 L, Carbon Dioxide 29, Anion Gap 11.3, BUN 17, Creatinine 0.90, Estimated Creat Clear 55, Estimated GFR 64, Est GFR ( Amer) 78, Glucose 163 H, Calcium 9.3, Total Bilirubin 0.4, AST 34, ALT 39, Alkaline Phosphatase 79, Troponin I 0.51 H, C-Reactive Protein 3.6, Total Protein 6.4, Albumin 3.9, Globulin 2.5, Albumin/Globulin Ratio 1.6, Procalcitonin 0.049 04/13/23 20:05: Troponin I 0.03 04/13/23 20:40: Troponin I 0.03 04/13/23 23:35: Troponin I 0.04 H 04/14/23 06:14: WBC 18.2 H, RBC 4.93, Hgb 14.7, Hct 47.2 H, MCV 95.8, MCH 29.9, MCHC 31.2 L, RDW 15.6, Plt Count 354, MPV 7.3 L, Neut % (Auto) 74.3, Lymph % (Auto) 20.8, [place] % (Auto) 4.1, Eos % (Auto) 0.5, Baso % (Auto) 0.3, Neut # (Auto) 13.5 H, Lymph # (Auto) 3.8, [place] # (Auto) 0.7, Eos # (Auto) 0.1, Baso # (Auto) 0.1, Total Counted 100, Neutrophils % (Manual) 71, Lymphocytes % (Manual) 23, Monocytes % (Manual) 6, Platelet Estimate Normal, RBC Morphology Normal, PT 10.1, INR 0.93, Sodium 136, Potassium 4.4, Chloride 96 L, Carbon Dioxide 38 H, Anion Gap 6.4, BUN 20 H, Creatinine 0.80, Estimated Creat Clear 62, Estimated GFR 73, Est GFR ( Amer) 89, Glucose 80 D, Calcium 8.8, Phosphorus 3.8, Magnesium 2.3, Total Bilirubin 0.2, AST 25 D, ALT 28 D, Alkaline Phosphatase 69, Total Protein 5.8 L, Albumin 3.4 L D, Globulin 2.4, Albumin/Globulin Ratio 1.4, Triglycerides 147, Cholesterol 135 L, LDL Cholesterol Direct 53.01 L, VLDL Cholesterol 29, HDL Cholesterol 69 H, Cholesterol/HDL Ratio 2.0 I & O for Last 24 hours: Intake & Output 04/11/23 04/12/23 04/13/23 04/14/23 23:59 23:59 23:59 23:59 Intake Total 0 / 0 Output Total 0 / 0 Balance 0 / 0 Weight 51.573 kg Constitutional Constitutional: no acute distress, chronically ill appearing and cooperative *Routine Neck Exam Neck: Present supple, full ROM and trachea midline; Absent lymphadenopathy *Routine Respiratory Exam Respiratory: Present rhonchi, wheezes, diminished air movement, normal respiratory effort and symmetric chest movement *Routine Cardiovascular Exam Cardiovascular: Present RRR; Absent murmur *Routine Abdominal Exam Abdominal: Present soft and normoactive bowel sounds; Absent tenderness *Routine Extremities Exam Extremities: Present full ROM, pulses intact and normal capillary refill; Absent edema *Routine Skin Exam Skin: Present warm; Absent rash *Routine Neurological Exam Neurological: Present alert, oriented X3, moving all extremities, vision grossly intact, hearing grossly intact and normal speech; Absent sensory deficit or motor deficit Routine Psychiatric Exam Psychiatric: Present normal affect, normal thought process, cooperative, good insight and good judgment Assessment and Plan *Assessment and plan (1)
--- NOTE | 2023-04-14 14:40 | CT_ITS ---
FINAL REPORT TECHNIQUE: Axial CT images were performed from the lung apices through the upper abdomen. Coronal reformats were submitted. This study was performed with techniques to keep radiation doses as low as reasonably achievable (ALARA). Individualized dose reduction techniques using automated exposure control or adjustment of mA and/or kV according to the patient's size were employed. CLINICAL HISTORY: Abnormal CXR COMPARISON: 04/12/2023 FINDINGS: There is moderate coronary artery calcification. There is no axillary adenopathy. There is no hilar or mediastinal mass or adenopathy. Heart size is normal. There is no pericardial or pleural effusion. Limited images of the upper abdomen are unremarkable. No suspicious infiltrate or nodule is identified on lung window images. There is moderate emphysema. There is a chronic left 7th lateral rib fracture. Postoperative changes are seen in the left humeral head. IMPRESSION: Moderate emphysema. Reviewed, Interpreted and Dictated by Papito Su III, MD Transcribed by Ashlie Mccracken Authenticated and [facility]
--- NOTE | 2023-04-14 15:09 | HMH.PHAINT1 ---
Pharmacy Intervention Comments: MEDICATION RECONCILIATION COMPLETE USING EXTERNAL PHARMACY FILL HISTORY.
[2023-04-15] VITALS: BP 90/61; PULSE 63; PULSE 65; RESP 18; TEMP 36.9; O2SAT 99
[2023-04-15 04:00] VITALS: BP 96/65; PULSE 60; PULSE 64; RESP 18; TEMP 36.6; O2SAT 99; BMI 22.6
--- NOTE | 2023-04-15 06:29 | PC.NURSE ---
NSR ON TELE. VSS/AFEBRILE. 02 AT 2LNC. INDEPENDENT TO BR WITH SBA. REMAINS ON 1800 ML FLUID RESTRICTION. HAS HAD A TOTAL OF 1700 ML IN THIS 24 HR PERIOD 7AM TO 7 AM.DENIES SOA/PAIN OR DISCOMFORT.
[2023-04-15 07:32] VITALS: BP 114/67; PULSE 64; RESP 16; TEMP 36.9; O2SAT 93
[2023-04-15 08:00] VITALS: PULSE 85
[2023-04-15 08:28] LABS: Anion Gap 12.2 mEq/L (5-15); Blood Urea Nitrogen 25 mg/dl (7-17); Calcium 8.9 mg/dl (8.4-10.2); Carbon Dioxide 34 mmol/L (22.0-30.0); Chloride 94 mmol/L (98-107); Creatinine Clearance Estimated 71 mL/min (50-200); Estimated Glomerular Filt Rate 86 ml/min (>60); GFR (African American) 104 ML/MIN (>60); Glucose 130 mg/dl (74-100); Potassium 4.2 mmoL/L (3.5-5.1); Sodium 136 mmol/L (136-145)
[2023-04-15 09:05] VITALS: O2SAT 98
[2023-04-15 09:14] LABS: Basophils # 0.3 K/mm3 (0-0.2); Basophils % 1.7 % (0.1-2.0); Eosinophils % 0.2 % (0.1-12.0); Hematocrit 49.6 % (37.0-47.0); Hemoglobin 14.8 g/dL (12.2-16.2); Lymphocytes # 3.2 K/mm3 (0.7-4.5); Lymphocytes % 17.3 % (10-50); Mean Corpuscular HGB Conc 29.8 g/dL (31.8-35.4); Mean Corpuscular Hemoglobin 30.1 pg (27.0-31.2); Mean Corpuscular Volume 100.9 fl (81-99); Mean Platelet Volume 7.8 fl (7.4-10.4); Monocytes # 0.5 K/mm3 (0.1-1.0); Monocytes % 2.7 % (1.7-9.3); Neutrophils # 14.3 K/mm3 (1.8-7.8); Neutrophils % 78.1 % (37.0-80.0); Platelet Count 367 K/mm3 (142-424); Red Blood Count 4.92 M/mm3 (4.20-5.40); Red Cell Distribution Width 15.4 % (11.5-17.5); White Blood Count 18.3 K/mm3 (4.8-10.8)
[2023-04-15 09:19] LABS: MANUAL DIFFERENTIAL MANUAL DIFFERENTIAL (MANUAL DIFF)
[2023-04-15 11:15] VITALS: BP 94/62; PULSE 67; RESP 18; TEMP 37.3; O2SAT 94
--- NOTE | 2023-04-15 11:19 | EXP.DC.SUM ---
General Admission date:: 04/13/23 Discharge date: 04/15/23 HPI HPI HPI: This is a 57-year-old female with PMHx of hypertension, CAD, COPD, CHF, and extensive smoking history presented to the emergency department for evaluation of elevated troponins at [facility]. patient went to the hospital after been evaluated yesterday. She was admitted to the hospital overnight, and states that her troponin went from 62-58 (high sensitivity). Patient decided to come here for reassessment. She denies any concerns, such as chest pain, shortness of breath, or other issues at this time. She states she has felt tired lately and had chest pain on the left side several days ago, however it resolved since then. Admitted for further observation and management. Hospital Course Hospital Course Hospital Course: 58-year-old female with PMHx of poorly controlled diabetes who was recently restarted on metformin, CKD, MITCHELL, hypertension, tobacco use disorder, hyperlipidemia, and morbid obesity presenting to the emergency department for evaluation with concern for 1 week of nausea, vomiting, poor oral intake, watery diarrhea, and generalized weakness, after recent started on metformin. At ER lab work was performed. consistent with hypokalemia and hypomagnesemia. ABG showed ph 7.41. creatinine and BUN elevated. Consistent with dehydration. discussion made with ER provider. after been working up on IV resuscitation, patient c/o still feeling weak. decision for admission was made. The patient was admitted to the medical floor with telemetry monitoring and cardiology consultation. She was started on IV fluid resuscitation with routine lab and inflammatory marker evaluations. Problems addressed as follows: Acute kidney injury Resolved Baseline creatinine 1.0 Trending electrolytes and creatinine Gentle IV fluid resuscitation with identified HFpEF Avoiding NSAIDs Enteritis Dehydration Concerns for viral etiology with reassuring labs Trending labs and inflammatory markers Leukocytoses with prednisone therapy Electrolyte and mineral replacement therapy Advancing diet as tolerated Diabetes Routine blood sugar monitoring Hemoglobin A1c 9.5% Basal insulin therapy Sliding scale insulin therapy Carbohydrate controlled diet Coronary artery disease Antiplatelet therapy Statin therapy Beta-ezra therapy ARB therapy Chronic HFpEF Echocardiogram (November 2022) with EF 55% Loop diuretic therapy Beta-ezra therapy SGLT2 inhibitor therapy ARB therapy Accurate I's and O's Cardiology consult noted BMI 41/OHS/MITCHELL/COPD overlap Pulse oximetry monitoring Oxygen therapy to maintain appropriate oxygen saturations Currently oxygenating appropriately on her usual home requirement 2 L Trelegy inhalation therapy Doxycycline on discharge Short course of prednisone on discharge NIPPV therapy Nutrition education Calorie appropriate diet Complicates all aspects of care Tobacco dependence Tobacco cessation education Nicotine replacement therapy The patient's labs identified and improved renal function and her procalcitonin and inflammatory markers remained negative. Her CBC identified a leukocytoses with prednisone therapy. Nursing staff identified that she remained afebrile with stable vital signs and saturated on her usual home oxygen requirement. Cardiology evaluated the patient and made recommendations concerning her medications and outpatient follow-up. She identified improvement and inquired about discharge home. I spent 35 minutes in [id number] time with the patient and nursing staff concerning the discharge process. We discussed the admitting diagnoses and hospital course. We discussed identified improvement and the patient's desire to be discharged. We reviewed inpatient studies and imaging. The patient voiced understanding on the importance of follow-up with her primary care provider and specialist(s). She has an appointment to see a local pulmonolog
[2023-04-15 15:47] LABS: Lymphocytes % 15 % (10-50); Monocytes % 5 % (2-9); Neutrophils % 80 % (42-76); Platelet Estimate Normal; RBC Morphology Normal; Total Cells Counted 100
--- NOTE | 2023-04-17 14:42 | CARE MANAGER ---
Contacted patient related to hospital discharge. She picked up her medication and has cardiology appointment set up for tomorrow with her tightener in [place]. She has not set up appt with PCP but states she will. She denies questions or concerns. GANESH Osborne
== END 2023-04-15 13:48 | disposition home or self-care (01) ==
LOC: ER 21:44 → 2ND 21:52
PROVIDERS: Nurse Practitioner Family; Admitting Provider Family Medicine; Emergency Provider Emergency Medicine; Visit Provider Family Medicine
DX: I5A Non-ischemic myocardial injury (non-traumatic) (principal); E87.1 Hypo-osmolality and hyponatremia; I50.22 Chronic systolic (congestive) heart failure; I11.0 Hypertensive heart disease with heart failure; E78.2 Mixed hyperlipidemia; I25.10 Atherosclerotic heart disease of native coronary artery without angina pectoris; F17.219 Nicotine dependence, cigarettes, with unspecified nicotine-induced disorders; R94.30 Abnormal result of cardiovascular function study, unspecified; J96.21 Acute and chronic respiratory failure with hypoxia; Z79.891 Long term (current) use of opiate analgesic; Z79.02 Long term (current) use of antithrombotics/antiplatelets; Z79.899 Other long term (current) drug therapy; J44.1 Chronic obstructive pulmonary disease with (acute) exacerbation
CPT/HCPCS: 36415; 71045; 71250; 80048; 80053; 80061; 83735; 84100; 84145; 84484; 85007; 85025; 85610; 85651; 86140; 93005; 93306; 94640; 94761; 99291; G0378; J0574